=== PATIENT | male | born 1950 | race Hispanic/Latino ===

== ENCOUNTER 2017-06-26 13:13 | Inpatient (IN) | payer MEDICARE, OTHER ==
[~2017-06-26] VITALS: Ht 160 cm; Wt 78.6 kg
[~2017-06-26 13:13] MED LIST: AMARYL2 MG PO; CALCITRIOL0.25 MCG PO; FINASTERIDE5 MG PO; FLOMAX0.4 MG PO; FUROSEMIDE40 MG PO; GABAPENTIN400 MG PO; LANTUS100 UNITS/ SQ; LISINOPRIL10 MG PO; METOPROLOL SUCC25 MG PO; SIMVASTATIN20 MG PO
[2017-06-26] MEDS ORDERED: CLINDAMYCIN PHOS 900MG/ D5W 50 50 ML IV STA (13:50)
[2017-06-26] MEDS ORDERED: SODIUM CHLORIDE 0.9% 1000ML 1,000 ML IV STA (13:50)
[2017-06-26] MEDS ORDERED: HYDROCODONE/APAP 10MG-325MG TAB PO ONE (14:00)
--- NOTE | 2017-06-26 14:59 | Diagnostic Imaging Report ---
PROCEDURE: A single AP view of the chest. COMPARISON: 02/27/16 INDICATIONS: DIABETIC, LEFT 4TH DIGIT ON FOOT BLACK 10 DAYS FINDINGS: Lines/tubes: None. Lungs: Limited by low lung volumes. Central peribronchovascular thickening/cuffing. Pleura: There is no pleural effusion or pneumothorax. Heart and mediastinum: The cardiomediastinal silhouette is enlarged on this AP view. Bones: No acute bony abnormality. IMPRESSION: Limited by low lung volumes. Central peribronchovascular thickening/cuffing. Underlying infiltrate cannot be excluded. Dictated by: Alejandro Hernandez M.D. on 06/26/2017 at 15:07 Electronically approved by: Alejandro Hernandez M.D. on 06/26/2017 at 15:07
--- NOTE | 2017-06-26 15:04 | Diagnostic Imaging Report ---
PROCEDURE:X-RAY LEFT FOOT, COMPLETE COMPARISON:None. INDICATIONS:DIABETIC, 4TH DIGIT ON LEFT TOE BLACK 10 DAYS FINDINGS: There are no fractures or dislocations. Focal area of decreased mineralization in the middle phalanx of the fourth toe, may represent early erosive changes. Vascular calcifications. Mild soft tissue swelling of the midfoot. CONCLUSION: Focal area of decreased mineralization in the middle phalanx of the fourth toe, may represent early erosive changes. Otherwise unremarkable exam. Dictated by: Alejandro Hernandez M.D. on 06/26/2017 at 15:13 Electronically approved by: Alejandro Hernandez M.D. on 06/26/2017 at 15:13
[2017-06-26] MEDS ORDERED: CLINDAMYCIN PHOS 900MG/ D5W 50 50 ML IV ONE (17:58)
[2017-06-26] MEDS ORDERED: SODIUM CHLORIDE 0.9% 1000ML 1,000 ML ONE (17:58)
[2017-06-26 18:00] LABS: BASOPHILS # (AUTO) 0.1 (0.0-0.1); BASOPHILS % 1.2 % (0.0-1.0); BILIRUBIN,URINE NEGATIVE (NEGATIVE); EOSINOPHILS # (AUTO) 0.7 (0.0-0.4); EOSINOPHILS % 9.4 % (0.0-6.0); HEMATOCRIT 34.6 % (38.2-49.6); HEMOGLOBIN 11.5 g/dL (14.0-18.0); KETONES,URINE NEGATIVE (NEGATIVE); LEUKOCYTE ESTERASE ,URINE TRACE (NEGATIVE); LYMPHOCYTES # (AUTO) 1.3 (1.0-3.2); LYMPHOCYTES % 19.1 % (18.0-39.1); MEAN CORPUSCULAR HEMOGLOBIN 30.9 pg (28-32); MEAN CORPUSCULAR HGB CONC 33.2 g/dL (31-35); MONOCYTES # (AUTO) 0.8 (0.2-0.8); MONOCYTES % 10.8 % (4.4-11.3); NEUTROPHILS # (AUTO) 4.1 (2.1-6.9); NEUTROPHILS % 59.2 % (38.7-80.0); NITRITE,URINE NEGATIVE (NEGATIVE); PLATELET COUNT 225 x10e3/uL (140-360); RED BLOOD COUNT 3.72 x10e6/uL (4.3-5.7); RED CELL DISTRIBUTION WIDTH 13.1 % (11.7-14.4); URINE UROBILINOGEN 0.2 mg/dL (0.2 - 1)
[2017-06-26 18:02] LABS: CLARITY,URINE CLEAR (CLEAR); COLOR,URINE YELLOW (YELLOW); PROTEIN,URINE DIPSTICK 1+ (NEGATIVE)
[2017-06-26 18:08] LABS: INR 0.97; PROTHROMBIN TIME 13.4 seconds (11.9-14.5)
[2017-06-26 18:09] LABS: PARTIAL THROMBOPLASTIN TIME 29.7 seconds (23.8-35.5)
[2017-06-26 18:17] LABS: ALBUMIN 4.1 g/dL (3.5-5.0); ALBUMIN/GLOBULIN RATIO 0.9 (0.8-2.0); ANION GAP 12.6 mmol/L (8-16); CALCIUM 9.8 mg/dL (8.4-10.2); CREATININE, SERUM 2.15 mg/dL (0.72-1.25); POTASSIUM 4.6 mmol/L (3.5-5.1)
[2017-06-26 18:19] LABS: BACTERIA,URINE RARE /HPF; MUCUS,URINE FEW (RARE)
[2017-06-26 18:26] LABS: CREATINE KINASE MB 2.5 ng/mL (0.00-5.00); TROPONIN I 0.012 ng/mL (0-0.300)
[2017-06-26] MEDS ORDERED: HYDROMORPHONE 1MG/1ML INJ IV PRN (20:00)
[2017-06-26] MEDS ORDERED: SODIUM CHLORIDE FLUSH 10 ML SYR INJ PRN (20:00)
[2017-06-26] MEDS ORDERED: DEXTROSE 50% SYRINGE 50 ML IV PRN (20:00)
[2017-06-26] MEDS ORDERED: ONDANSETRON HCL INJ 2 MG/ML VIAL IV PRN (20:00)
[2017-06-26] MEDS ORDERED: HYDROMORPHONE 2MG/ML INJ IV PRN (20:15)
[2017-06-26] MEDS ORDERED: CLOPIDOGREL75 MG PO (20:33)
[2017-06-26] MEDS ORDERED: PENTOXIFYLLINE400 MG PO (20:34)
[2017-06-26] MEDS ORDERED: LOSARTAN POTASS25 MG PO (20:34)
[2017-06-26] MEDS ORDERED: CILOSTAZOL100 MG PO (20:35)
[2017-06-26] MEDS ORDERED: FINASTERIDE5 MG PO (20:35)
[2017-06-26] MEDS ORDERED: HYDROCODONE/APAP 10MG-325MG TAB ONE (20:42)
[2017-06-26] MEDS: VANCOMYCIN 1GM/NS 250 ML 250 ML IV SCH (20:49)
[2017-06-26] MEDS: INSULIN REGULAR, HUMAN 100 UNIT/1 ML 3ML VIAL SQ SCH (20:55)
[2017-06-26] MEDS: PIPER-TAZ 3.375 GM 50 ML IV SCH (22:25)
[2017-06-26 22:45] VITALS: BP 189/91
[2017-06-26 23:44] VITALS: BP 189/91
[2017-06-27] MEDS: CLONIDINE HCL 0.1 MG TAB PO PRN (00:36)
[2017-06-27 05:13] VITALS: BP 167/76
[2017-06-27] MEDS ORDERED: SODIUM CHLORIDE 0.9% 250ML 250 ML ONE (05:30)
[2017-06-27] MEDS: PIPER-TAZ 3.375 GM 50 ML IV SCH ×2 (05:42→14:00)
[2017-06-27 06:22] LABS: BASOPHILS # (AUTO) 0.1 (0.0-0.1); BASOPHILS % 1.2 % (0.0-1.0); EOSINOPHILS # (AUTO) 0.5 (0.0-0.4); HEMATOCRIT 28.2 % (38.2-49.6); LYMPHOCYTES # (AUTO) 1.3 (1.0-3.2); LYMPHOCYTES % 26.1 % (18.0-39.1); MEAN CORPUSCULAR HEMOGLOBIN 30.9 pg (28-32); MEAN CORPUSCULAR HGB CONC 32.6 g/dL (31-35); MEAN CORPUSCULAR VOLUME 94.6 fL (81-99); MONOCYTES # (AUTO) 0.7 (0.2-0.8); MONOCYTES % 13.8 % (4.4-11.3); NEUTROPHILS # (AUTO) 2.5 (2.1-6.9); NEUTROPHILS % 48.5 % (38.7-80.0); PLATELET COUNT 179 x10e3/uL (140-360); RED BLOOD COUNT 2.98 x10e6/uL (4.3-5.7)
[2017-06-27 06:39] LABS: HEMOGLOBIN 9.2 g/dL (14.0-18.0)
[2017-06-27 06:45] LABS: ALANINE AMINOTRANSFERASE 13 IU/L (0-55); ALBUMIN 2.9 g/dL (3.5-5.0); ALBUMIN/GLOBULIN RATIO 0.9 (0.8-2.0); ALKALINE PHOSPHATASE 86 IU/L (40-150); ANION GAP 11.3 mmol/L (8-16); BLOOD UREA NITROGEN 25 mg/dL (7-26); BUN/CREATININE RATIO 14 (6-25); CALCIUM 8.4 mg/dL (8.4-10.2); CARBON DIOXIDE 20 mmol/L (22-29); CHLORIDE 113 mmol/L (98-107); CREATININE, SERUM 1.79 mg/dL (0.72-1.25); EST GLOMERULAR FILTRATION RATE 38 ML/MIN (60-); GLUCOSE 87 mg/dL (74-118); POTASSIUM 4.3 mmol/L (3.5-5.1); SODIUM 140 mmol/L (136-145)
--- NOTE | 2017-06-27 07:19 | History and Physical ---
A 67-year-old male comes in with left lower extremity pain and swelling. HISTORY OF PRESENT ILLNESS: Patient was in his usual health until about 10 days prior to admission. Patient started to have some pain in the left foot area, symptomatic. He soaked the area, and did local wound care. Noted that the redness and swelling had gotten worse. Patient also had some drainage in that area, and came into the emergency room. Was found to have cellulitis of the left lower extremity with vascular problems, and admitted for the same. PAST MEDICAL HISTORY: History of hypertension, history of diabetes mellitus, history of long-term use of insulin, history of PAD, history of hyperlipidemia, history of BPH. MEDICATIONS 1. Calcitriol 0.25 mg for nephrolithiasis. 2. Cilostazol for his PAD. 3. for his PAD. 4. Finasteride 5 mg daily. 5. Furosemide 40 mg daily. 6. Gabapentin 400 mg daily for diabetic neuropathy. 7. Glargine insulin 10 units daily. 8. Lisinopril 10 mg daily. 9. Metoprolol 25 mg ER q.24 h. 10. Motexafin 400 mg daily. 11. Simvastatin 20 mg. 12. Tamsulosin 0.4 mg daily. 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 SOCIAL HISTORY: No ETOH. No drug use. Lives at home. Never a smoker. REVIEW OF SYSTEMS: Negative for chest pain or shortness of breath. No nausea, vomiting or diarrhea. No constipation. No rectal bleeding. No hematochezia. No hematemesis. Positive for left lower extremity pain. No diplopia. No blurry vision. Positive for tenderness, and also paresthesia in the left lower extremity. PHYSICAL EXAMINATION GENERAL: Patient is alert and oriented times 3. Very pleasant man. VITALS: Temperature is 9.67, blood pressure 167/76, pulse 61, respiratory rate 18. HEENT: Normocephalic and atraumatic. Pupils reactive to light and accommodation. CV: S1 and S2 normal. Regular rate and rhythm. ABDOMEN: Nontender and nondistended. EXTREMITIES: Right lower extremity BKA, on prosthesis. Left lower extremity left 4th toe a little darkened and discolored. Positive for some serous drainage. Decreased pulses in both tibialis and pedal pulses. Otherwise, no edema. LABORATORY VALUES: Initial white count was 6.95, hemoglobin 11.5 and hematocrit of 34.5. Chemistry: BUN was 27, creatinine 2.15. Coags were normal. Urine also had a trace amount of leukocyte esterase. IMAGING STUDIES: Chest x-ray shows limited lung volumes. Central peribronchovascular thickening. Underlying infiltrate cannot be excluded. Foot x-ray shows focal area of decreased medialization of the middle phalanx of the 4th toe. May represent early osseous changes. Otherwise, unremarkable exam. ASSESSMENT 1. Cellulitis of the lower extremities: Patient has been started on vancomycin and Zosyn. Will go ahead and also do arterial Dopplers. Consult with podiatry will be done, and also a cardiology consult for peripheral arterial disease. Will continue on his home medications, and restart his insulin too. Further recommendations per clinical course. Discussed the case in detail with the patient. The patient is agreeable with the plan. 2. Patient also has acute kidney injury: Will keep an eye on it. Also, wait for cultures to come back. Job#: [id number] YEIMI
[2017-06-27] MEDS: INSULIN REGULAR, HUMAN 100 UNIT/1 ML 3ML VIAL SQ SCH ×4 (07:30→21:32)
[2017-06-27] MEDS: VANCOMYCIN 1GM/NS 250 ML 250 ML IV SCH (08:30)
[2017-06-27] MEDS: METOPROLOL SUCCINATE 25 MG TAB XL PO SCH (09:00)
[2017-06-27] MEDS: CALCITRIOL 0.25 MCG CAP PO SCH (09:00)
[2017-06-27] MEDS: SIMVASTATIN 20 MG TAB PO SCH (09:00)
[2017-06-27] MEDS: FINASTERIDE 5 MG TAB PO SCH (09:00)
[2017-06-27] MEDS: TAMSULOSIN HCL 0.4 MG CAP PO SCH (09:00)
[2017-06-27] MEDS: PENTOXIFYLLINE 400 MG TAB CR PO SCH ×3 (09:00→21:34)
[2017-06-27] MEDS: LOSARTAN POTASSIUM 25 MG TAB PO SCH (09:00)
[2017-06-27] MEDS ORDERED: LISINOPRIL 10 MG TAB PO SCH (09:00)
[2017-06-27] MEDS: GABAPENTIN 400 MG CAP PO SCH (09:00)
[2017-06-27] MEDS ORDERED: FUROSEMIDE 40 MG TAB PO SCH (09:00)
[2017-06-27] MEDS: CLOPIDOGREL BISULFATE 75 MG TAB PO SCH (09:00)
[2017-06-27] MEDS: CILOSTAZOL 100 MG TAB PO SCH ×2 (09:00→16:16)
[2017-06-27 09:10] VITALS: BP 159/79
[2017-06-27 10:25] VITALS: BP 159/79
[2017-06-27 12:18] VITALS: BP 154/80
--- NOTE | 2017-06-27 14:16 | Diagnostic Imaging Report ---
TECHNIQUE: Magnetic resonance imaging of the left foot was performed WITHOUT injected contrast. HISTORY: Foot pain and cellulitis COMPARISON: None available. DISCUSSION: Soft tissue swelling of the forefoot. No discrete ulceration, sinus tract, or abscess. Bone marrow signal is normal. No edema or T1 replacement. Hammertoe deformities. Atrophy of the foot musculature. No intermetatarsal space bursitis or neuroma. IMPRESSION: No osteomyelitis. Forefoot soft tissue edema/cellulitis Signed by: Dr. Tulio Smalls M.D. on 06/27/2017 2:13 PM
--- NOTE | 2017-06-27 18:43 | Consultation ---
DATE OF CONSULTATION: June 27, 2017 REASON FOR CONSULTATION: Cellulitis of left foot. HISTORY OF PRESENT ILLNESS: Mr. Kline is a pleasant 67-year-old male admitted through the ED secondary to progressive foot pain with progressive erythema. He admits that the problem started approximately 10 days ago with a lesion in between the 4th and 3rd digits of the same. Tried doing wound care and failed with increased pain and some drainage also was emitting from the foot. At that point, decided to present to the ED for evaluation and recommendations. PAST MEDICAL HISTORY: Hypertension, diabetes, PAD, hyperlipidemia, BPH. SURGICAL HISTORY: Right below knee amputation. SOCIAL HISTORY: Denies any alcohol, tobacco or illicit abuse. Lives at home. He is independent. ALLERGIES: NO KNOWN DRUG ALLERGIES. MEDICATIONS: Please see MAR for medication list. REVIEW OF SYSTEMS: With the exception of foot pain and hyperesthesia and dysesthesia associated to the left foot, denies any nausea, vomiting, fever, chills, chest pain, hematuria, constipation, diarrhea. PHYSICAL EXAMINATION GENERAL: A and O times 3. NAD. VITALS: 97.9 temperature, pulse 56, respiratory rate 20, blood pressure 154/80. HEENT: Normocephalic and atraumatic. Anicteric. Moist mucosal membranes. NECK: Full range of motion. No JVD. RESPIRATORY: Symmetrical expansion. ABDOMEN: Soft, nontender and nondistended. PSYCHIATRIC: Normal affect. EXTREMITIES: There is a prosthetic to the right lower extremity. Left foot shows significant deformity with significantly tight digits albeit difficult to spread digits with tight interdigital spaces. There is some discoloration associated to the 4th digit with a lesion associated to the medial aspect of the same. Similarly, a lesion associated to the 3rd digit lateral aspect. There is some discoloration associated to the digits as well. Vascularly, his pulses are faint in both dorsalis pedis and tibial arteries of the same foot. No . No soft tissue crepitation is noted. DIAGNOSTIC DATA: Labs: WBC is 5.09, hemoglobin and hematocrit 9.2 and 28.8 respectively, and platelets are 179,000. BUN and creatinine at 25 and 1.79 respectively. X-rays show changes along the 4th digit, left foot. MRI shows no evidence of edema therefore excluding any infectious osseous process. ASSESSMENT 1. Diabetic ulceration, left foot, particularly 3rd and 4th digits. 2. Peripheral arterial disease. 3. Peripheral neuropathy. PLAN: Continue with current workup. Local wound care for now and will consist of petroleum gauze in between affected digits. Pending interventional cardiology evaluation to assess whether the patient is an adequate candidate for angiogram. Also, he is pending noninvasive studies. Thank you, Dr. Sánchez, for allowing me to participate in the care of this very pleasant patient. Job#: [id number] RI
[2017-06-27 20:26] VITALS: BP 92/51
[2017-06-27] MEDS: PIPERACILLIN/TAZO 2.25 GM 50 ML IV SCH (21:34)
[2017-06-28 00:13] VITALS: BP 118/57
[2017-06-28] MEDS: PIPERACILLIN/TAZO 2.25 GM 50 ML IV SCH ×3 (06:16→21:48)
[2017-06-28 06:19] VITALS: BP 123/69
[2017-06-28 06:33] LABS: BASOPHILS # (AUTO) 0.1 (0.0-0.1); BASOPHILS % 1.1 % (0.0-1.0); EOSINOPHILS # (AUTO) 0.5 (0.0-0.4); EOSINOPHILS % 8.3 % (0.0-6.0); HEMATOCRIT 25.4 % (38.2-49.6); HEMOGLOBIN 8.6 g/dL (14.0-18.0); LYMPHOCYTES # (AUTO) 1.4 (1.0-3.2); LYMPHOCYTES % 25.2 % (18.0-39.1); MEAN CORPUSCULAR HEMOGLOBIN 31.5 pg (28-32); MEAN CORPUSCULAR HGB CONC 33.9 g/dL (31-35); MONOCYTES # (AUTO) 0.6 (0.2-0.8); MONOCYTES % 11.3 % (4.4-11.3); NEUTROPHILS # (AUTO) 3.1 (2.1-6.9); NEUTROPHILS % 53.7 % (38.7-80.0); PLATELET COUNT 164 x10e3/uL (140-360); RED BLOOD COUNT 2.73 x10e6/uL (4.3-5.7); RED CELL DISTRIBUTION WIDTH 13.2 % (11.7-14.4)
[2017-06-28 06:56] LABS: ANION GAP 12.1 mmol/L (8-16); CALCIUM 8.5 mg/dL (8.4-10.2); CREATININE, SERUM 2.77 mg/dL (0.72-1.25); POTASSIUM 4.1 mmol/L (3.5-5.1)
[2017-06-28] MEDS: INSULIN REGULAR, HUMAN 100 UNIT/1 ML 3ML VIAL SQ SCH ×4 (07:30→21:48)
[2017-06-28 08:00] VITALS: BP 91/50
[2017-06-28] MEDS ORDERED: VANCOMYCIN 1GM/NS 250 ML 250 ML IV SCH (09:00)
[2017-06-28] MEDS: SIMVASTATIN 20 MG TAB PO SCH (09:03)
[2017-06-28] MEDS: CLOPIDOGREL BISULFATE 75 MG TAB PO SCH (09:03)
[2017-06-28] MEDS: GABAPENTIN 400 MG CAP PO SCH (09:03)
[2017-06-28] MEDS: CALCITRIOL 0.25 MCG CAP PO SCH (09:03)
[2017-06-28] MEDS: TAMSULOSIN HCL 0.4 MG CAP PO SCH (09:03)
[2017-06-28] MEDS: CILOSTAZOL 100 MG TAB PO SCH ×2 (09:03→17:06)
[2017-06-28] MEDS: FINASTERIDE 5 MG TAB PO SCH (09:03)
[2017-06-28] MEDS: PENTOXIFYLLINE 400 MG TAB CR PO SCH ×3 (09:03→21:48)
--- NOTE | 2017-06-28 11:21 | Consultation ---
DATE OF CONSULTATION: June 28, 2017 REASON FOR CONSULTATION: CKD stage 4. HISTORY OF PRESENT ILLNESS: Mr. Grider is a 67-year-old man with diabetes and hypertension, who was seen in our clinic in [place] 2 days ago. On exam, he had a necrotic right second digit and I transferred him to the emergency department for further management from my clinic. He has been admitted for the above to [facility]. He has never had arterial or venous studies performed on the leg. He states that the foot has been progressively getting worsening discoloration over the past few weeks. According to the daughter, he does have occasional pain, although patient denies it. No aggravating or alleviating factors. No associated fevers, chills, or nausea. He has chronic kidney disease stage 4, likely in the setting of diabetic and hypertensive nephrosclerosis. Diabetes and hypertension has been present for over 20 years. It has been complicated by retinopathy and neuropathy. PAST MEDICAL HISTORY 1. Hypertension. 2. Diabetes. 3. Peripheral artery disease. 4. Hyperlipidemia. 5. BPH. Currently, he has a Moss in place. PAST SURGICAL HISTORY: [id number] amputation on the right. SOCIAL HISTORY: No alcohol, tobacco use, or drug use. REVIEW OF SYSTEMS: Denies fevers, chills, nausea, vomiting, diarrhea, chest pain, palpitations, abdominal pain, pain or burning with urination, numbness or tingling in the upper or lower extremities, changes in mentation, changes in appetite, or changes in thirst. A 14-point review of systems is otherwise negative. MEDICATIONS: Reviewed on electronic medical record. PHYSICAL EXAMINATION GENERAL: He is lying comfortably in bed, in no acute distress. VITAL SIGNS: Temperature 97.8, heart rate 65, respiratory rate 18, blood pressure 123/69, and O2 sat is 97% on room air. HEENT: NC, AT, EOMI. NECK: Supple. JVP not appreciated. LUNGS: Clear to auscultation bilaterally. No wheezing or rales. HEART: Regular rate and rhythm, S1 and S2 normal. ABDOMEN: Soft, nontender, and nondistended. EXTREMITIES: No edema in lower extremities. Has a right BKA. NEURO: Cranial nerves II through XII are grossly intact. SKIN: No rashes or lesions. MUSCULOSKELETAL: Right BKA, but otherwise normal inspection. IMAGING: Reviewed on electronic medical record. Foot MRI performed yesterday showed no osteomyelitis, but otherwise showed soft tissue edema and cellulitis. Chest x-ray performed on presentation showed central peribronchovascular cuffing. Foot x-ray showed focal area of decreased mineralization in the middle phalanx of the fourth toe, which may represent early erosive changes. Arterial studies are currently pending. ASSESSMENT AND PLAN 1. A 67-year-old man admitted with foot cellulitis. 2. Chronic kidney disease stage 4. Continue to avoid contrast and NSAIDs. He is on both lisinopril and losartan. We will stop the lisinopril and continue losartan. This may have caused the rise in creatinine. We will also check a urinalysis and a renal ultrasound. Seems dry on exam at this point, so we will hold the Lasix for now as well. 3. Secondary hyperparathyroidism. We will continue the calcitriol. 4. Metabolic acidosis. We will start sodium bicarbonate. 5. Hypertension. Continue metoprolol and losartan. Thank you, Dr. Sánchez, for allowing me to participate in the care of Mr. Grider. I will continue to follow closely. Job#: [id number] CHINMAY
[2017-06-28 12:00] VITALS: BP 179/73
[2017-06-28] MEDS: METOPROLOL SUCCINATE 25 MG TAB XL PO SCH (12:17)
[2017-06-28] MEDS: LOSARTAN POTASSIUM 25 MG TAB PO SCH (12:17)
[2017-06-28 14:09] LABS: BILIRUBIN,URINE NEGATIVE (NEGATIVE); KETONES,URINE NEGATIVE (NEGATIVE); LEUKOCYTE ESTERASE ,URINE TRACE (NEGATIVE); NITRITE,URINE NEGATIVE (NEGATIVE); URINE UROBILINOGEN 0.2 mg/dL (0.2 - 1)
[2017-06-28 14:10] LABS: PROTEIN,URINE DIPSTICK 1+ (NEGATIVE)
[2017-06-28 14:52] LABS: CLARITY,URINE CLEAR (CLEAR); COLOR,URINE YELLOW (YELLOW)
[2017-06-28 14:54] LABS: RBC,URINE 0-5 /HPF (0-5); WBC,URINE (MAN) >50 /HPF (0-5)
[2017-06-28 14:56] LABS: YEAST,URINE MODERATE
--- NOTE | 2017-06-28 15:47 | Consultation ---
DATE OF CONSULTATION: June 28, 2017 REQUESTING PHYSICIAN: Dr. Shun Sánchez REASON FOR CONSULTATION: Peripheral arterial disease. HISTORY OF PRESENT ILLNESS: This is a 67-year-old man with history of hypertension, hyperlipidemia, diabetes mellitus, chronic kidney disease, and peripheral arterial disease status post prior revascularization and right BKA, who presented with gangrene of the left toes. Bilateral lower extremity arterial Doppler was performed, which was suggestive of hemodynamically significant stenosis in the left popliteal artery. Cardiology was consulted for further evaluation. The patient denies any history of heart disease. Denies chest pain, shortness of breath, palpitations, edema, orthopnea, or PND. REVIEW OF SYSTEMS: Negative, except as per HPI. PAST MEDICAL HISTORY 1. Hypertension. 2. Hyperlipidemia. 3. Diabetes mellitus. 4. Chronic kidney disease. 5. Peripheral arterial disease, status post prior revascularization. PAST SURGICAL HISTORY: Right BKA. ALLERGIES: PLEASE SEE EMR. MEDICATIONS: Please see medication list. SOCIAL HISTORY: Denies tobacco, alcohol, or illicit drug use. Reports prior alcohol. FAMILY HISTORY: Noncontributory. PHYSICAL EXAMINATION VITAL SIGNS: Temperature 96.8 degrees, pulse 73, respiratory rate 18, blood pressure 179/73, oxygen saturation 95% on room air. GENERAL: Well-developed, well-nourished man in no acute distress. HEENT: Normocephalic and atraumatic. Pupils are equal. No scleral icterus. NECK: Supple. No thyromegaly or cervical lymphadenopathy. No carotid bruit. LUNGS: Clear to auscultation bilaterally. No wheezes or crackles. CARDIOVASCULAR: Normal rate, regular rhythm. No murmur. Normal S1 and S2. ABDOMEN: Soft. Nontender. EXTREMITIES: No edema. Right BKA. Left foot with dressing. NEURO: Nonfocal exam. SKIN: No rash appreciated. LABS: Sodium 139, potassium 4.1, chloride 102, CO2 19, BUN 39, creatinine 2.77. WBC 5.6, hemoglobin 8.6, hematocrit 25.4, platelets 164. EKG: Normal sinus rhythm, normal ECG. IMPRESSION 1. Left foot cellulitis. 2. Peripheral arterial disease suggested by noninvasive Doppler evaluation. 3. Chronic kidney disease, stage 4. 4. Diabetes mellitus. 5. Hypertension. 6. Hyperlipidemia. RECOMMENDATIONS: Continue current cardiac medications. Antibiotics per primary service. Peripheral angiogram is indicated, given the patient's Doppler findings. However, his renal function will be a limiting factor. We will discuss with nephrology our options and risks of contrast-induced nephropathy. Thank you for this consult. We will continue to follow. Job#: [id number] LILA
[2017-06-28 16:00] VITALS: BP 137/66
[2017-06-28] MEDS: SODIUM BICARBONATE 650 MG TAB PO SCH (17:06)
--- NOTE | 2017-06-28 18:45 | Diagnostic Imaging Report ---
PROCEDURE:US RETROPERITONEAL ( KIDNEY ). COMPARISON:Patients [facility], CT, CT ABDOMEN/PELVIS WO, 02/27/2016, 19:18. INDICATIONS:MORENA ON CKD TECHNIQUE: Damon-scale and color sonographic images of the bilateral kidneys and bladder where obtained in transverse and longitudinal planes. FINDINGS: RIGHT KIDNEY: 10.8 cm, cortex 1.6 cm Cysts: None Solid masses: None Stones: None Hydronephrosis: None Echogenicity: Increased LEFT KIDNEY: 10.9 cm, cortex 1.9 cm Cysts: 1.7 x 1.4 x 1.7 cm hypoechoic, mostly exophytic cystic lesion in the mid lateral aspect (previously measured approximately 1.2 x 1.[address] Solid masses: None Stones: None Hydronephrosis: None Echogenicity: Increased Bladder: Bladder is decompressed, with a Moss catheter in place. Circumferential bladder wall thickening. The Prostate: Not visualized CONCLUSION: 1. Bilateral increased renal cortical echogenicity, consistent with medical renal disease. No hydronephrosis or obstruction. 2. 1.7 cm mostly exophytic cystic lesion in the mid lateral left kidney, which has probably increased in size, although direct comparison is limited given the difference in modalities. This lesion measured simple fluid on prior CT. 3. Circumferential bladder wall thickening, which is greater than expected for decompressed bladder. Correlate for cystitis. Santiago Issa M.D. Dictated by: Santiago Issa M.D. on 06/28/2017 at 18:54 Electronically approved by: Santiago Issa M.D. on 06/28/2017 at 18:54
[2017-06-28 20:00] VITALS: BP 129/61
[2017-06-29] VITALS: BP 122/60
[2017-06-29] MEDS: PIPERACILLIN/TAZO 2.25 GM 50 ML IV SCH ×3 (05:08→21:32)
[2017-06-29 06:39] LABS: ANION GAP 12.5 mmol/L (8-16); CALCIUM 8.4 mg/dL (8.4-10.2); CREATININE, SERUM 2.85 mg/dL (0.72-1.25); PHOSPHORUS 4.4 MG/DL (2.3-4.7); POTASSIUM 4.5 mmol/L (3.5-5.1)
[2017-06-29 08:00] VITALS: BP 180/81
[2017-06-29] MEDS: CILOSTAZOL 100 MG TAB PO SCH ×2 (09:00→16:39)
[2017-06-29] MEDS: LOSARTAN POTASSIUM 25 MG TAB PO SCH (09:00)
[2017-06-29] MEDS: CALCITRIOL 0.25 MCG CAP PO SCH (09:00)
[2017-06-29] MEDS: GABAPENTIN 400 MG CAP PO SCH (09:00)
[2017-06-29] MEDS: CLOPIDOGREL BISULFATE 75 MG TAB PO SCH (09:00)
[2017-06-29] MEDS: TAMSULOSIN HCL 0.4 MG CAP PO SCH (09:00)
[2017-06-29] MEDS: SODIUM BICARBONATE 650 MG TAB PO SCH ×2 (09:00→16:39)
[2017-06-29] MEDS: FINASTERIDE 5 MG TAB PO SCH (09:00)
[2017-06-29] MEDS: SIMVASTATIN 20 MG TAB PO SCH (09:01)
[2017-06-29] MEDS: METOPROLOL SUCCINATE 25 MG TAB XL PO SCH (09:01)
[2017-06-29] MEDS: PENTOXIFYLLINE 400 MG TAB CR PO SCH ×3 (09:01→20:58)
[2017-06-29] MEDS: INSULIN REGULAR, HUMAN 100 UNIT/1 ML 3ML VIAL SQ SCH ×4 (09:05→21:00)
[2017-06-29 09:23] LABS: BASOPHILS # (AUTO) 0.1 (0.0-0.1); BASOPHILS % 0.9 % (0.0-1.0); EOSINOPHILS # (AUTO) 0.4 (0.0-0.4); EOSINOPHILS % 6.7 % (0.0-6.0); HEMATOCRIT 27.4 % (38.2-49.6); HEMOGLOBIN 9.1 g/dL (14.0-18.0); LYMPHOCYTES % 15.6 % (18.0-39.1); MEAN CORPUSCULAR HEMOGLOBIN 31.6 pg (28-32); MEAN CORPUSCULAR HGB CONC 33.2 g/dL (31-35); MEAN CORPUSCULAR VOLUME 95.1 fL (81-99); MONOCYTES # (AUTO) 0.5 (0.2-0.8); MONOCYTES % 8.1 % (4.4-11.3); NEUTROPHILS # (AUTO) 4.4 (2.1-6.9); NEUTROPHILS % 68.4 % (38.7-80.0); PLATELET COUNT 175 x10e3/uL (140-360); RED BLOOD COUNT 2.88 x10e6/uL (4.3-5.7); RED CELL DISTRIBUTION WIDTH 13.2 % (11.7-14.4)
[2017-06-29 10:15] VITALS: BP 180/81
--- NOTE | 2017-06-29 11:03 | Consultation ---
DATE OF CONSULTATION: June 29, 2017 REASON FOR CONSULTATION: Anemia. A 67-year-old gentleman with a past medical history including hypertension, diabetes, peripheral arterial disease, hyperlipidemia, BPH, admitted with left foot pain. He had chronic foot changes following podiatry at the time of admission, which showed foot was dark and discolored, and positive for serous drainage. He was admitted for cellulitis. Patient also had a CBC, which shows normocytic anemia. Patient denies any GI bleed. He had elevated creatinine. No other symptoms noted. PAST MEDICAL HISTORY: Hypertension, diabetes, peripheral arterial disease, status post right below knee amputation, BPH, hyperlipidemia, chronic ulcers. ALLERGIES: REVIEW PER NURSING LIST. MEDICATIONS: Reviewed. SOCIAL HISTORY: Lives with son. No smoking, alcohol or drugs. REVIEW OF SYSTEMS: A 12-point review of systems as per HPI. FAMILY HISTORY: Reviewed and noncontributory. PHYSICAL EXAMINATION GENERAL: Alert, awake and communicative. HEENT: Normocephalic and atraumatic. Sclerae pink. Conjunctivae clear. NECK: Supple. CHEST: Clear to auscultation. CARDIOVASCULAR: Regular rate and rhythm. ABDOMEN: Soft and nontender. EXTREMITIES: Patient has right lower extremity BKA and left lower extremity left 4th toe a little dark and discolored without serous discharge. [employer]: Grossly intact. MUSCULOSKELETAL: Normal to inspection. LABS AND IMAGING: Reviewed. ASSESSMENT: Patient has a history of multiple medical conditions. I am currently following for: 1. Anemia: Patient has normocytic anemia. Possible differential includes anemia of chronic disease. Patient already has elevated kidney function. Recommendation is will start the patient on Epogen treatment. Will assess ferritin and iron level. Further recommendations will be forwarded. Try to avoid frequent blood draws. Will monitor the patient closely. 2. Diabetes: Patient currently on medication. Will monitor blood glucose. 3. Hyperlipidemia: Continue simvastatin. 4. BPH: Patient currently on medication. 5. Cellulitis: Patient currently on Zosyn and vancomycin. Will continue remaining care. Will follow the patient. Job#: [id number] DE
--- NOTE | 2017-06-29 11:54 | Progress Note ---
DATE: REASON FOR CONSULTATION: MORENA on CKD stage 4. SUBJECTIVE: No acute events overnight. PHYSICAL EXAMINATION GENERAL: Lying comfortably in bed on room air. VITAL SIGNS: Temperature 97, heart rate 78, respiratory rate 18, blood pressure 180/81. O2 sat is 96% on room air. HEENT: NCAT, EOMI. NECK: Supple. LUNGS: Clear to auscultation bilaterally. No wheezing or rales. HEART: Regular rate and rhythm. S1, S2 normal. ABDOMEN: Soft, nontender, distended. EXTREMITIES: Right BKA but left, no edema. LABS: Reviewed in electronic medical record. UA significant for 1+ protein and more than 50 WBCs, with negative RBCs. Labs significant for a creatinine of 2.8 and a BUN of 38 and a bicarb of 20. Hemoglobin 9.1. IMAGING: Renal ultrasound shows no hydronephrosis but there is concern for circumferential bladder wall thickening and concerning for cystitis. Along with the fact that his urine has greater than 50 white blood cells and is positive for leukocyte esterase, will treat for urinary tract infection. Patient already remains on Zosyn. Will check urine culture and if negative, will consider acute interstitial nephritis. Current kidney function is not that significantly far from baseline, but at this point, would recommend holding off on contrast until kidney function starts to improve. Based on current glomerular filtration rate and diabetic status, his risk of developing contrast-induced nephropathy is 26% with a 1% risk of requiring dialysis. These odds were explained to the patient and he was willing to pursue contrast if deemed necessary, once kidney function improves. Hypertension. Will hold losartan. Anemia of chronic kidney disease. Appreciate hematology input. On EPO 10,000 units Monday/Monday/Monday. Metabolic acidosis. Continue sodium bicarbonate. Job#: [id number] [place]
[2017-06-29 12:00] VITALS: BP 171/80
[2017-06-29] MEDS: CLONIDINE HCL 0.1 MG TAB PO PRN (12:05)
--- NOTE | 2017-06-29 14:19 | Progress Note ---
DATE: June 29, 2017 CARDIOLOGY PROGRESS NOTE SUBJECTIVE: Patient denies chest pain or shortness of breath. He had discussion with nephrology regarding his risk for contrast and is willing to proceed despite the risk of contrast-induced nephropathy and risk of dialysis. OBJECTIVE VITAL SIGNS: Temperature 97 degrees, pulse 78, respiratory rate 18, blood pressure 171/80. Oxygen saturation 96% on room air. GENERAL: Awake, alert, in no acute distress. LUNGS: Clear to auscultation bilaterally. No wheezes or crackles. CARDIOVASCULAR: Normal rate, regular rhythm. No murmur. Normal S1 and S2. ABDOMEN: Soft. Nontender. EXTREMITIES: Right BKA. Left foot with dressing. No edema. CARDIAC MEDICATIONS 1. Simvastatin 20 mg p.o. daily. 2. Metoprolol succinate 50 mg p.o. daily. 3. Plavix 75 mg p.o. daily. 4. Cilostazol 100 mg p.o. b.i.d. LABS: WBC 6.4, hemoglobin 9.1, hematocrit 27.4, platelets 175. Sodium 140, potassium 4.5, chloride 112, CO2 20, BUN 38, creatinine 2.85. IMPRESSION 1. Left foot cellulitis. 2. Peripheral arterial disease suggested by noninvasive Doppler evaluation. 3. Chronic kidney disease, stage 4. 4. Diabetes mellitus. 5. Hypertension. 6. Hyperlipidemia. RECOMMENDATIONS: Continue current cardiac medications. Antibiotics per primary service. Peripheral angiogram is indicated for further evaluation as his Doppler is suggestive of hemodynamically significant stenosis in the left popliteal artery. This was discussed with nephrology who wished to hold off for a few days to optimize his renal function prior to proceeding. Thank you for this consult. We will continue to follow. Job#: [id number]
[2017-06-29 16:00] VITALS: BP 117/66
[2017-06-29 21:30] VITALS: BP 136/60
[2017-06-30] MEDS: PIPERACILLIN/TAZO 2.25 GM 50 ML IV SCH ×3 (05:16→21:50)
[2017-06-30] MEDS: CLONIDINE HCL 0.1 MG TAB PO PRN (05:18)
[2017-06-30 06:41] LABS: BASOPHILS # (AUTO) 0.1 (0.0-0.1); BASOPHILS % 1.2 % (0.0-1.0); EOSINOPHILS # (AUTO) 0.6 (0.0-0.4); EOSINOPHILS % 9.7 % (0.0-6.0); HEMATOCRIT 27.5 % (38.2-49.6); LYMPHOCYTES # (AUTO) 1.6 (1.0-3.2); MEAN CORPUSCULAR HGB CONC 32.7 g/dL (31-35); MEAN CORPUSCULAR VOLUME 94.8 fL (81-99); MONOCYTES # (AUTO) 0.6 (0.2-0.8); NEUTROPHILS % 51.8 % (38.7-80.0); PLATELET COUNT 173 x10e3/uL (140-360); RED CELL DISTRIBUTION WIDTH 13.2 % (11.7-14.4)
[2017-06-30 07:05] LABS: ANION GAP 11.4 mmol/L (8-16); CALCIUM 8.7 mg/dL (8.4-10.2); CREATININE, SERUM 2.89 mg/dL (0.72-1.25); POTASSIUM 4.4 mmol/L (3.5-5.1)
[2017-06-30] MEDS: INSULIN REGULAR, HUMAN 100 UNIT/1 ML 3ML VIAL SQ SCH ×4 (07:30→21:00)
[2017-06-30 08:24] VITALS: BP 162/89
[2017-06-30] MEDS: SODIUM BICARBONATE 650 MG TAB PO SCH ×2 (08:57→16:29)
[2017-06-30] MEDS: CILOSTAZOL 100 MG TAB PO SCH ×2 (08:57→16:29)
[2017-06-30] MEDS: TAMSULOSIN HCL 0.4 MG CAP PO SCH (08:57)
[2017-06-30] MEDS: CALCITRIOL 0.25 MCG CAP PO SCH (08:57)
[2017-06-30] MEDS: FINASTERIDE 5 MG TAB PO SCH (08:57)
[2017-06-30] MEDS: CLOPIDOGREL BISULFATE 75 MG TAB PO SCH (08:57)
[2017-06-30] MEDS: GABAPENTIN 400 MG CAP PO SCH (08:57)
[2017-06-30] MEDS: PENTOXIFYLLINE 400 MG TAB CR PO SCH ×3 (08:58→21:00)
[2017-06-30] MEDS: METOPROLOL SUCCINATE 25 MG TAB XL PO SCH (08:58)
[2017-06-30] MEDS: EPOETIN ALFA 10000 UNIT/ML VIAL SC SCH (08:58)
[2017-06-30] MEDS: SIMVASTATIN 20 MG TAB PO SCH (08:58)
[2017-06-30 11:01] VITALS: BP 162/89
[2017-06-30 11:22] VITALS: BP 154/81
--- NOTE | 2017-06-30 11:44 | Progress Note ---
DATE: June 30, 2017 Patient seen and examined today. Patient appears comfortable. Clinically doing better. No worsening event noted. PHYSICAL EXAMINATION GENERAL: Alert, awake and communicative. HEENT: Normocephalic and atraumatic. Sclerae are pink. Conjunctivae are clear. NECK: Supple. CHEST: Clear to auscultation. CARDIOVASCULAR: Regular rate and rhythm. EXTREMITIES: No edema. LABS AND IMAGING: Reviewed. ASSESSMENT AND PLAN: Patient has a history of peripheral vascular disease, chronic leg ulcer, renal insufficiency, and anemia. The patient's anemia workup is consistent with anemia of chronic disease and iron deficiency anemia. Current hemoglobin is stable. The patient is currently started on Epogen. Will start the patient on iron sulfate. Will continue remaining care. Will follow the patient closely. Job#: [id number]
[2017-06-30] MEDS: IRON SUCROSE 100 MG in SODIUM CHLORIDE 0.9% 100 ML 100 ML IV SCH (11:53)
[2017-06-30 15:50] VITALS: BP 141/70
--- NOTE | 2017-06-30 18:55 | Progress Note ---
DATE: June 30, 2017 CARDIOLOGY PROGRESS NOTE SUBJECTIVE: The patient reports he had some chest discomfort with inspiration earlier today. The pain was 3 out of 10 in severity. He denied any shortness of breath. OBJECTIVE VITAL SIGNS: Temperature 97.6 degrees, pulse 67, respiratory rate 16, blood pressure 154/81, oxygen saturation 97% on room air. GENERAL: Awake, alert, in no acute distress. LUNGS: Clear to auscultation bilaterally. No wheezes or crackles. CARDIOVASCULAR: Normal rate, regular rhythm. No murmur. Normal S1 and S2. ABDOMEN: Soft, nontender. EXTREMITIES: Right BKA. Left foot with dressing. No edema. CARDIAC MEDICATIONS 1. Cilostazol 100 mg p.o. b.i.d. 2. Metoprolol succinate 50 mg p.o. daily. 3. Plavix 75 mg p.o. daily. 4. Simvastatin 20 mg p.o. nightly. LABS: WBC 5.8, hemoglobin 9, hematocrit 27.5, platelets 173. Sodium 142, potassium 4.4, chloride 114, CO2 21, BUN 37, creatinine 2.89. IMPRESSION 1. Left foot cellulitis. 2. Peripheral arterial disease suggested by noninvasive Doppler evaluation. 3. Chronic kidney disease stage 4. 4. Diabetes mellitus. 5. Hypertension. 6. Hyperlipidemia. RECOMMENDATIONS: Continue the current cardiac medications. Antibiotics per primary service. Peripheral angiogram is indicated for further evaluation as his Doppler is suggestive of hemodynamically significant stenosis in the left popliteal artery. This was discussed with Nephrology, who wish to wait in order to optimize his renal function prior to proceeding. Defer timing to Nephrology. Thank you for this consult. We will continue to follow. Job#: [id number] EV
[2017-06-30 20:00] VITALS: BP_SYST 141; BP_SYST 144; BP_DIAS 70; BP_DIAS 74
[2017-07-01] VITALS (8 sets, daily range): BP systolic 129–200; BP diastolic 75–87
[2017-07-01] MEDS: PIPERACILLIN/TAZO 2.25 GM 50 ML IV SCH ×3 (05:47→22:00)
[2017-07-01 06:45] LABS: BASOPHILS # (AUTO) 0.1 (0.0-0.1); BASOPHILS % 1.3 % (0.0-1.0); EOSINOPHILS # (AUTO) 0.6 (0.0-0.4); EOSINOPHILS % 10.3 % (0.0-6.0); HEMATOCRIT 26.8 % (38.2-49.6); LYMPHOCYTES # (AUTO) 1.6 (1.0-3.2); LYMPHOCYTES % 29.5 % (18.0-39.1); MEAN CORPUSCULAR HEMOGLOBIN 31.1 pg (28-32); MEAN CORPUSCULAR HGB CONC 33.6 g/dL (31-35); MEAN CORPUSCULAR VOLUME 92.7 fL (81-99); MONOCYTES # (AUTO) 0.5 (0.2-0.8); MONOCYTES % 9.9 % (4.4-11.3); NEUTROPHILS # (AUTO) 2.6 (2.1-6.9); NEUTROPHILS % 48.4 % (38.7-80.0); PLATELET COUNT 177 x10e3/uL (140-360); RED BLOOD COUNT 2.89 x10e6/uL (4.3-5.7); RED CELL DISTRIBUTION WIDTH 13.2 % (11.7-14.4)
[2017-07-01 07:19] LABS: CALCIUM 8.5 mg/dL (8.4-10.2); CREATININE, SERUM 2.51 mg/dL (0.72-1.25); MAGNESIUM 1.5 MG/DL (1.3-2.1); PHOSPHORUS 3.7 MG/DL (2.3-4.7); VANCOMYCIN,RANDOM 9.5 ug/mL
[2017-07-01] MEDS: INSULIN REGULAR, HUMAN 100 UNIT/1 ML 3ML VIAL SQ SCH ×4 (07:30→21:00)
--- NOTE | 2017-07-01 08:50 | Progress Note ---
DATE: July 01, 2017 Patient was seen and examined today. Patient appeared comfortable. No worsening events noted. No chest pain. The nurse was present. PHYSICAL EXAMINATION GENERAL: Alert, awake and communicative. HEENT: Normocephalic and atraumatic. Sclerae pale. Conjunctivae clear. NECK: Supple. CHEST: Clear to auscultation. CARDIOVASCULAR: Regular rate and rhythm. EXTREMITIES: Chronic skin changes with left foot ulcer. LABS AND IMAGING: Reviewed. ASSESSMENT AND PLAN: Patient with a history of multiple medical conditions. I am currently following for anemia. Patient was started on iron and Epogen. Current hemoglobin is 9, and not worsening. Clinical condition is stable. Patient is scheduled for angiogram and vascular procedure likely on Monday. Patient also has worsening kidney function with creatinine running between 2 and 3. Baseline renal function. At this point, do not recommend any further hematological intervention. Hematologically, within optimal condition for procedure. Will continue remaining care. Will follow the patient. Hyperlipidemia. Continue simvastatin. BPH. On medication. Cellulitis. On antibiotics. Job#: [id number] CT
[2017-07-01] MEDS: CARVEDILOL 12.5 MG TAB PO SCH ×2 (10:01→17:04)
[2017-07-01] MEDS: CILOSTAZOL 100 MG TAB PO SCH ×2 (10:01→17:04)
[2017-07-01] MEDS: GABAPENTIN 400 MG CAP PO SCH (10:01)
[2017-07-01] MEDS: FINASTERIDE 5 MG TAB PO SCH (10:01)
[2017-07-01] MEDS: IRON SUCROSE 100 MG in SODIUM CHLORIDE 0.9% 100 ML 100 ML IV SCH (10:01)
[2017-07-01] MEDS: CALCITRIOL 0.25 MCG CAP PO SCH (10:01)
[2017-07-01] MEDS: CLOPIDOGREL BISULFATE 75 MG TAB PO SCH (10:01)
[2017-07-01] MEDS: SODIUM BICARBONATE 650 MG TAB PO SCH ×2 (10:01→17:04)
[2017-07-01] MEDS: TAMSULOSIN HCL 0.4 MG CAP PO SCH (10:01)
[2017-07-01] MEDS: PENTOXIFYLLINE 400 MG TAB CR PO SCH ×2 (10:01→14:38)
[2017-07-01] MEDS: VANCOMYCIN 1GM/NS 250 ML 250 ML IV SCH (11:36)
[2017-07-01] MEDS: CLONIDINE HCL 0.1 MG TAB PO PRN (11:37)
--- NOTE | 2017-07-01 14:32 | Progress Note ---
DATE: June 30, 2017 RENAL PROGRESS NOTE The patient is followed for chronic kidney disease, stage 4. Creatinine continues to be stable at about 2.8 mg/dL. No nausea. No vomiting. No shortness of breath. OBJECTIVE VITAL SIGNS: Have been noted and is stable. LUNGS: Clear to auscultation bilaterally. CARDIOVASCULAR: S1 and S2. No rubs, gallops or murmurs. ABDOMEN: Soft. Positive bowel sounds. Nontender. No organomegaly. EXTREMITIES: No edema. LABS: Reviewed. Creatinine is 2.89, potassium 4.4. IMPRESSION AND PLAN 1. Chronic kidney disease, stage 4: More or less stable. Continue to monitor closely. 2. Hypertension, stable. 3. Proteinuria: Outpatient followup. Job#: [id number] YEIMI
--- NOTE | 2017-07-01 14:36 | Progress Note ---
DATE: July 01, 2017 RENAL PROGRESS NOTE SUBJECTIVE: Patient is followed for chronic kidney disease, stage 4. Patient's kidney function is slightly better today. Creatinine is down to 2.5. He is still at a CKD, stage 4 baseline. No nausea. No vomiting. No shortness of breath. He is not on any IV fluids. OBJECTIVE VITAL SIGNS: Noted. Blood pressure is elevated at 180/80, 95% O2 sats on room air, pulse 71, and afebrile. LUNGS: Clear to auscultation bilaterally. CARDIOVASCULAR: S1 and S2. No rubs. ABDOMEN: Soft and nontender. EXTREMITIES: No edema. LABS: Have been reviewed and outlined above. Creatinine is down to 2.5. IMPRESSION AND PLAN 1. Chronic kidney disease, stage 4: Stable kidney function. Will continue to monitor closely. Further recommendations. 2. Hypertension, elevated: Carvedilol dose has been increased to 12.5 mg p.o. b.i.d. from today. Will continue to monitor. Continue to monitor blood pressure closely. Further recommendations. 3. Anemia of chronic disease, stable. 4. Proteinuria: Outpatient followup. Job#: [id number] YEIMI
[2017-07-01] MEDS: HYDRALAZINE HCL 25 MG TAB PO SCH ×2 (15:45→17:04)
[2017-07-01] MEDS: ASPIRIN 81 MG CHEW TAB PO SCH (17:03)
[2017-07-01] MEDS: SIMVASTATIN 20 MG TAB PO SCH (19:57)
--- NOTE | 2017-07-01 21:26 | Diagnostic Imaging Report ---
CHEST 2 VIEWS, Technique: CHEST 2 VIEWS Comparison: None Clinical history: Abnormal lung exam, shortness of breath DISCUSSION: Heart/mediastinum: Stable mildly enlarged. Lungs/pleural spaces: Low lung volumes result in bibasilar vascular crowding/atelectasis. No effusion or pneumothorax. IMPRESSION: Low lung volumes. Signed by: Dr Dana Smart MD on 07/01/2017 9:22 PM
[2017-07-02] VITALS (8 sets, daily range): BP systolic 138–197; BP diastolic 71–92
--- NOTE | 2017-07-02 01:42 | Progress Note ---
DATE: July 01, 2017 CARDIOLOGY PROGRESS NOTE SUBJECTIVE: Denies chest pain or shortness of breath today. OBJECTIVE VITALS: Temperature is 97.4, heart rate 74, respiratory rate 19, blood pressure 200/80, O2 sat 96% on room air. GENERAL: In no acute distress. NECK: No JVD. CHEST: With left basilar rales. CARDIOVASCULAR: Regular rate and rhythm. Normal S1 and S2. No S3 or S4. No murmurs or rubs. ABDOMEN: Soft. EXTREMITIES: Right BKA. Left foot with improved erythema seen. Blackish discoloration of the 4th toe. Per the patient, somewhat improved compared to when he came in. No ulcerations or ivelisse gangrenous changes. CARDIOVASCULAR MEDICATIONS: Reviewed. 1. Pentoxifylline 400 mg t.i.d. 2. Clonidine 0.1 mg q.6 h. p.r.n. 3. Carvedilol 12.5 mg b.i.d. recently up-titrated. 4. Clopidogrel 75 mg daily. 5. Cilostazol 100 mg b.i.d. 6. Simvastatin 10 mg at bedtime. STUDIES: White blood cells 5.3, hemoglobin 9, and platelets 177,000. INR 0.9. Creatinine is 2.5 down from 2.89, which was a peak yesterday. Bicarbonate 20, glucose 214, magnesium 1.5, calcium 8.5, phosphorus 3.7. ASSESSMENT 1. Mild rales on exam. 2. Uncontrolled hypertension. 3. Left foot cellulitis, improving. 4. Peripheral arterial disease suggested by noninvasive Doppler. 5. Acute kidney injury on chronic kidney disease. 6. Diabetes mellitus. 7. Hypertension. 8. Dyslipidemia. RECOMMENDATIONS 1. Obtain echocardiogram. 2. Repeat chest x-ray given rales heard on exam today. Patient denies any shortness of breath. 3. Up titrate antihypertensives. 4. Add aspirin. Discontinue Pletal. 5. If LV systolic function decreased, will discontinue cilostazol. Job#: [id number] IN
[2017-07-02] MEDS: HYDRALAZINE HCL 25 MG TAB PO SCH ×4 (06:36→16:58)
[2017-07-02] MEDS: PIPERACILLIN/TAZO 2.25 GM 50 ML IV SCH ×3 (06:36→21:52)
[2017-07-02] MEDS: INSULIN REGULAR, HUMAN 100 UNIT/1 ML 3ML VIAL SQ SCH ×4 (07:30→21:00)
[2017-07-02] MEDS: ASPIRIN 81 MG CHEW TAB PO SCH (09:09)
[2017-07-02] MEDS: CLONIDINE HCL 0.1 MG TAB PO PRN ×2 (09:09→16:59)
[2017-07-02] MEDS: FINASTERIDE 5 MG TAB PO SCH (09:10)
[2017-07-02] MEDS: GABAPENTIN 400 MG CAP PO SCH (09:10)
[2017-07-02] MEDS: SODIUM BICARBONATE 650 MG TAB PO SCH ×2 (09:10→16:58)
[2017-07-02] MEDS: CALCITRIOL 0.25 MCG CAP PO SCH (09:10)
[2017-07-02] MEDS: CLOPIDOGREL BISULFATE 75 MG TAB PO SCH (09:10)
[2017-07-02] MEDS: TAMSULOSIN HCL 0.4 MG CAP PO SCH (09:10)
[2017-07-02] MEDS: IRON SUCROSE 100 MG in SODIUM CHLORIDE 0.9% 100 ML 100 ML IV SCH (09:10)
[2017-07-02] MEDS: CILOSTAZOL 100 MG TAB PO SCH ×2 (09:10→16:58)
[2017-07-02] MEDS: CARVEDILOL 12.5 MG TAB PO SCH ×2 (09:10→16:58)
--- NOTE | 2017-07-02 10:27 | Progress Note ---
DATE: July 02, 2017 CARDIOLOGY PROGRESS NOTE SUBJECTIVE: No chest pain or shortness of breath. OBJECTIVE VITALS: Temperature 97.9, heart rate 73, respiratory rate 19, blood pressure 183/89, O2 sat 96% on room air. GENERAL: No acute distress. Alert. NECK: No JVD. CHEST: Clear to auscultation. CARDIOVASCULAR: Regular rate and rhythm. Normal S1 and S2. ABDOMEN: Soft. EXTREMITIES: No edema. Abnormal pulses. Good capillary refill stable. Darkening of 4th left toe. Callous formation in the medial aspect of this toe. CARDIOVASCULAR MEDICATIONS 1. Carvedilol 12.5 mg b.i.d. 2. Clopidogrel 75 mg daily. 3. Cilostazol 100 mg b.i.d. 4. Aspirin 81 mg daily. 5. Simvastatin 20 mg at bedtime. STUDIES: For today, none available. ASSESSMENT 1. Uncontrolled hypertension. 2. Left foot cellulitis, improving. 3. Peripheral arterial disease suggested by Doppler. 4. Acute kidney injury on chronic kidney disease. 5. Diabetes mellitus. 6. Hypertension. 7. Dyslipidemia. RECOMMENDATIONS 1. Echo pending. Chest x-ray with low lung volumes with atelectasis. Advised on incentive spirometry. 2. Blood pressure remains uncontrolled. Continue to up-titrate antihypertensives. 3. Monitor renal function. 4. Continue aspirin. 5. If LV systolic function decreases on echo, discontinue cilostazol. 6. Regarding peripheral angiogram and possible intervention, continue to monitor clinical response of lower extremity to current noninvasive management. If no wounds evolve and renal function remains an issue, consider holding off on heparin for peripheral angiogram given elevated risk for contrast-induced nephropathy. However, if renal function allows particularly if foot exam continues to worsen, understanding elevated risk for contrast-induced nephropathy, will discuss with the patient preceding. Trend renal function throughout this week. Job#: [id number] YEIMI
[2017-07-02] MEDS: VANCOMYCIN 1GM/NS 250 ML 250 ML IV SCH (13:36)
[2017-07-02] MEDS ORDERED: LABETALOL HCL IV 5 MG/ML 20ML MDV IV PRN (17:45)
[2017-07-02] MEDS: SIMVASTATIN 20 MG TAB PO SCH (20:31)
[2017-07-03] VITALS (7 sets, daily range): BP systolic 139–198; BP diastolic 66–90
[2017-07-03] MEDS: PIPERACILLIN/TAZO 2.25 GM 50 ML IV SCH ×3 (06:18→20:26)
[2017-07-03] MEDS: HYDRALAZINE HCL 25 MG TAB PO SCH ×4 (06:18→18:33)
[2017-07-03 07:07] LABS: ANION GAP 13.3 mmol/L (8-16); CALCIUM 8.9 mg/dL (8.4-10.2); CREATININE, SERUM 2.15 mg/dL (0.72-1.25); POTASSIUM 4.3 mmol/L (3.5-5.1)
[2017-07-03] MEDS: INSULIN REGULAR, HUMAN 100 UNIT/1 ML 3ML VIAL SQ SCH ×4 (08:00→20:22)
[2017-07-03 09:17] LABS: BASOPHILS # (AUTO) 0.1 (0.0-0.1); BASOPHILS % 1.3 % (0.0-1.0); EOSINOPHILS # (AUTO) 0.6 (0.0-0.4); EOSINOPHILS % 8.5 % (0.0-6.0); HEMATOCRIT 27.9 % (38.2-49.6); HEMOGLOBIN 9.3 g/dL (14.0-18.0); LYMPHOCYTES # (AUTO) 1.3 (1.0-3.2); LYMPHOCYTES % 18.9 % (18.0-39.1); MEAN CORPUSCULAR HEMOGLOBIN 31.3 pg (28-32); MEAN CORPUSCULAR HGB CONC 33.3 g/dL (31-35); MEAN CORPUSCULAR VOLUME 93.9 fL (81-99); MONOCYTES # (AUTO) 0.7 (0.2-0.8); MONOCYTES % 10.7 % (4.4-11.3); NEUTROPHILS % 59.6 % (38.7-80.0); PLATELET COUNT 184 x10e3/uL (140-360); RED BLOOD COUNT 2.97 x10e6/uL (4.3-5.7); RED CELL DISTRIBUTION WIDTH 13.1 % (11.7-14.4)
[2017-07-03] MEDS: ASPIRIN 81 MG CHEW TAB PO SCH (09:43)
[2017-07-03] MEDS: CILOSTAZOL 100 MG TAB PO SCH ×2 (09:44→18:33)
[2017-07-03] MEDS: TAMSULOSIN HCL 0.4 MG CAP PO SCH (09:44)
[2017-07-03] MEDS: SODIUM BICARBONATE 650 MG TAB PO SCH ×2 (09:44→18:33)
[2017-07-03] MEDS: CLOPIDOGREL BISULFATE 75 MG TAB PO SCH (09:44)
[2017-07-03] MEDS: CALCITRIOL 0.25 MCG CAP PO SCH (09:44)
[2017-07-03] MEDS: EPOETIN ALFA 10000 UNIT/ML VIAL SC SCH (09:44)
[2017-07-03] MEDS: FINASTERIDE 5 MG TAB PO SCH (09:44)
[2017-07-03] MEDS: CARVEDILOL 12.5 MG TAB PO SCH ×2 (09:44→18:33)
[2017-07-03] MEDS: GABAPENTIN 400 MG CAP PO SCH (09:44)
--- NOTE | 2017-07-03 09:46 | Progress Note ---
DATE: July 03, 2017 Patient was seen and examined today. Patient appeared comfortable. No events noted. Clinical condition is stable. PHYSICAL EXAMINATION GENERAL: Alert, awake and communicative. HEENT: Normocephalic and atraumatic. Sclerae pink. Conjunctivae clear. NECK: Supple. CHEST: Clear to auscultation. ABDOMEN: Soft and nontender. EXTREMITIES: No clubbing or cyanosis. Wound covered with clean dressing. LABS AND IMAGING: Reviewed. ASSESSMENT AND PLAN: Patient with a history of left leg cellulitis, hypertension, peripheral arterial disease, acute kidney injury, diabetes, hypertension, dyslipidemia. I am currently involved for symptomatic anemia. Patient's workup showed iron deficiency anemia of chronic disease. Patient currently on Procrit and iron treatment. Current CBC not available. Clinical condition is stable. At this point, will continue current care. Will monitor the patient closely. The patient might require procedure. Will continue remaining care. Will follow. Job#: [id number] YEIMI
[2017-07-03] MEDS: IRON SUCROSE 100 MG in SODIUM CHLORIDE 0.9% 100 ML 100 ML IV SCH (11:35)
--- NOTE | 2017-07-03 12:49 | Progress Note ---
DATE: July 03, 2017 REASON FOR CONSULTATION: MORENA on CKD, stage 4. SUBJECTIVE: No acute events overnight. Eager to discuss whether or not the contrast study will be performed. OBJECTIVE GENERAL: Lying comfortably in bed in no acute distress. VITAL SIGNS: Temperature 98.1, heart rate 96, respiratory rate 19, blood pressure 192/82. O2 sat is 95% on room air. HEENT: NC, AT, EOMI. LUNGS: Clear to auscultation bilaterally. No wheezing or rales. HEART: Regular rate and rhythm. ABDOMEN: Soft, nontender. EXTREMITIES: Right BKA. Left with no edema. LABS: Reviewed on electronic medical record. Creatinine is now down to 2.1, which is close to baseline. Bicarb 21. BUN 27. IMAGING: Reviewed on electronic medical record. Chest x-ray showed low lung volumes. ASSESSMENT AND PLAN: A 67-year-old man with chronic kidney disease, stage 4, and evidence of necrotic toe. 1. Chronic kidney disease, stage 4, and acute kidney injury, improved. Now closer to baseline renal function. At this point, based on current kidney function, diabetic status, and receiving 100 mL of contrast, he has a 14% risk of developing contrast-induced nephropathy and 0.12% of requiring dialysis. It was explained to the patient. From the patient's standpoint, he would like to proceed with obtaining this study. Will hydrate with normal saline before and after the contrast study with normal saline at 75 mL per hour for a liter before and for a liter after. 2. Hypertension. I appreciate cardiology input as well. On Coreg 12.5 mg b.i.d. and labetalol p.r.n. 3. Metabolic acidosis. Continue sodium bicarbonate. 4. Anemia of chronic kidney disease on IV iron and Epogen. Job#: [id number]
[2017-07-03] MEDS: VANCOMYCIN 1GM/NS 250 ML 250 ML IV SCH (13:26)
--- NOTE | 2017-07-03 20:22 | Progress Note ---
DATE: July 03, 2017 CARDIOLOGY PROGRESS NOTE SUBJECTIVE: The patient denies chest pain or shortness of breath. OBJECTIVE VITAL SIGNS: Temperature 96.8 degrees, pulse 72, respiratory rate 18, blood pressure 195/89, oxygen saturation 96% on room air. GENERAL: Awake, alert, in no acute distress. LUNGS: Clear to auscultation bilaterally. No wheezes or crackles. CARDIOVASCULAR: Normal rate, regular rhythm. No murmur. Normal S1 and S2. ABDOMEN: Soft, nontender. EXTREMITIES: Right BKA. Left foot with dressing. No edema. CARDIAC MEDICATIONS 1. Hydralazine 25 mg p.o. q.6 h. 2. Carvedilol 12.5 mg p.o. b.i.d. 3. Plavix 75 mg p.o. daily. 4. Cilostazol 100 mg p.o. b.i.d. 5. Aspirin 81 mg p.o. daily. 6. Simvastatin 20 mg p.o. nightly. LABS: WBC 6.72, hemoglobin 9.3, hematocrit 27.9, platelets 184,000. Sodium 140, potassium 4.3, chloride 110, CO2 21, BUN 27, creatinine 2.15. IMPRESSIONS 1. Left foot cellulitis, improving. 2. Hypertension, uncontrolled. 3. Peripheral arterial disease by noninvasive Doppler evaluation. 4. Gmmop-pz-qauwhxf kidney disease, improving. 5. Diabetes mellitus. 6. Dyslipidemia. RECOMMENDATIONS: Increase carvedilol given uncontrolled blood pressure. Renal function is improved. Will discuss with podiatry regarding the status patient's wound. If wound is worsening, we will need to proceed with peripheral angiogram despite risk of contrast nephropathy. Evaluate schedule for possible peripheral angiogram. Continue current cardiac medications, otherwise. Thank you for this consult. We will continue to follow. Job#: [id number] CQ JOANIE
[2017-07-03] MEDS: SIMVASTATIN 20 MG TAB PO SCH (20:26)
[2017-07-04] MEDS: HYDRALAZINE HCL 25 MG TAB PO SCH ×3 (00:45→12:00)
[2017-07-04] MEDS: PIPERACILLIN/TAZO 2.25 GM 50 ML IV SCH ×2 (05:36→14:00)
[2017-07-04 06:26] LABS: ANION GAP 11.8 mmol/L (8-16); CALCIUM 8.5 mg/dL (8.4-10.2); CREATININE, SERUM 2.25 mg/dL (0.72-1.25); PHOSPHORUS 3.5 MG/DL (2.3-4.7); POTASSIUM 3.8 mmol/L (3.5-5.1)
[2017-07-04] MEDS: INSULIN REGULAR, HUMAN 100 UNIT/1 ML 3ML VIAL SQ SCH ×2 (07:30→12:09)
[2017-07-04 08:00] VITALS: BP 186/87
[2017-07-04 09:04] LABS: BASOPHILS # (AUTO) 0.1 (0.0-0.1); BASOPHILS % 1.1 % (0.0-1.0); EOSINOPHILS # (AUTO) 0.7 (0.0-0.4); EOSINOPHILS % 9.8 % (0.0-6.0); HEMATOCRIT 27.5 % (38.2-49.6); HEMOGLOBIN 9.2 g/dL (14.0-18.0); LYMPHOCYTES # (AUTO) 1.4 (1.0-3.2); LYMPHOCYTES % 20.6 % (18.0-39.1); MEAN CORPUSCULAR HEMOGLOBIN 31.7 pg (28-32); MEAN CORPUSCULAR HGB CONC 33.5 g/dL (31-35); MEAN CORPUSCULAR VOLUME 94.8 fL (81-99); MONOCYTES # (AUTO) 0.7 (0.2-0.8); MONOCYTES % 10.7 % (4.4-11.3); NEUTROPHILS # (AUTO) 3.8 (2.1-6.9); NEUTROPHILS % 56.9 % (38.7-80.0); PLATELET COUNT 178 x10e3/uL (140-360); RED CELL DISTRIBUTION WIDTH 13.4 % (11.7-14.4)
[2017-07-04] MEDS: IRON SUCROSE 100 MG in SODIUM CHLORIDE 0.9% 100 ML 100 ML IV SCH (09:15)
--- NOTE | 2017-07-04 09:33 | Progress Note ---
DATE: July 04, 2017 SUBJECTIVE: Patient is seen and examined today. Patient appears comfortable. No worsening event noted. PHYSICAL EXAMINATION: GENERAL: Alert, awake, communicative. HEENT: Normocephalic, atraumatic. Sclerae pink. Conjunctivae clear. NECK: Supple. CHEST: Decreased breath sounds at the bases. CARDIOVASCULAR: Regular rate and rhythm. ABDOMEN: Soft. EXTREMITIES: No edema. LABS AND IMAGING: Reviewed. ASSESSMENT AND PLAN: Patient with history of left foot cellulitis, hypertension, peripheral arterial disease, uqwfi-oq-uoohwez kidney disease, diabetes, and dyslipidemia. Patient also had anemia, workup showed anemia of chronic disease and iron deficiency. Current hemoglobin pending, yesterday hemoglobin improving. Clinical condition is stable. Patient is supposed to get angiogram based on the kidney functions. At current, do not recommend any further hematological intervention, try to avoid frequent blood drawn. Continue current care. Will monitor patient closely. Job#: [id number]
[2017-07-04] MEDS: GABAPENTIN 400 MG CAP PO SCH (09:45)
[2017-07-04] MEDS: TAMSULOSIN HCL 0.4 MG CAP PO SCH (09:45)
[2017-07-04] MEDS: ASPIRIN 81 MG CHEW TAB PO SCH (09:45)
[2017-07-04] MEDS: FINASTERIDE 5 MG TAB PO SCH (09:45)
[2017-07-04] MEDS: CLOPIDOGREL BISULFATE 75 MG TAB PO SCH (09:45)
[2017-07-04] MEDS: CALCITRIOL 0.25 MCG CAP PO SCH (09:45)
[2017-07-04] MEDS: CILOSTAZOL 100 MG TAB PO SCH (09:45)
[2017-07-04] MEDS: SODIUM BICARBONATE 650 MG TAB PO SCH (09:45)
[2017-07-04] MEDS ORDERED: SODIUM CHLORIDE 0.9% 1000ML 1,000 ML IV SCH (10:30)
--- NOTE | 2017-07-04 11:11 | Progress Note ---
DATE: July 04, 2017 REASON FOR CONSULTATION: CKD, stage 4. SUBJECTIVE: No acute events overnight. Is n.p.o. and is currently complaining of feeling hungry. OBJECTIVE GENERAL: Lying comfortably in bed in no acute distress. VITAL SIGNS: Temperature 97, heart rate 76, respiratory rate 19, blood pressure 186/87, and O2 sat is 95% on room air. HEENT: NCAT. EOMI. LUNGS: Clear to auscultation bilaterally. No wheezing or rales. HEART: Regular rate and rhythm. S1 and S2 normal. ABDOMEN: Soft, nontender and nondistended. EXTREMITIES: No edema. LABS: Reviewed in electronic medical record. Significant for a BUN of 32, creatinine of 2.2, carbon dioxide of 22. IMAGING: Was reviewed in the electronic medical record. ASSESSMENT AND PLAN: A 67-year-old man with chronic kidney disease, stage 4, presents with necrotic toe ulceration. 1. Chronic kidney disease, stage 4: Kidney function closer to baseline at this point. Plan for angiogram as per cardiology. Start the patient on normal saline at 100 per hour. If the plan is to go early this morning, can go ahead and give the bolus of 1 L over an hour. If not, then will continue normal saline at 100 per hour until the angiogram if it is planned for later today. 2. Hypertension, accelerated: Blood pressures will continue to increase on normal saline at each liter of normal saline will provide 9 g of sodium. We have increased the Coreg to 25 mg b.i.d. 3. Anemia of chronic kidney disease and iron deficiency anemia: Getting iron and Epogen as per hematology. Job#: [id number] YEIMI
[2017-07-04 12:00] VITALS: BP 127/60
[2017-07-04] MEDS: VANCOMYCIN 1GM/NS 250 ML 250 ML IV SCH (13:00)
[2017-07-04 14:34] VITALS: BP 186/87
[2017-07-04] MEDS ORDERED: CLINDAMYCIN HC150 MG ×2 (15:55→15:57)
[2017-07-04 16:00] VITALS: BP 176/79
[2017-07-04] MEDS ORDERED: CLINDAMYCIN HC150 MG PO (16:01)
[2017-07-04] MEDS ORDERED: CARVEDILOL 12.5 MG TAB PO SCH (17:00)
--- NOTE | 2017-07-04 17:13 | Progress Note ---
DATE: July 04, 2017 CARDIOLOGY PROGRESS NOTE SUBJECTIVE: The patient denies chest pain or shortness of breath. Extensive discussion was held with the patient and family members in the room regarding plan of care. OBJECTIVE VITAL SIGNS: Temperature 97.3 degrees, pulse 63, respiratory rate 19, blood pressure 127/60, oxygen saturation 100% on room air. GENERAL: Awake, alert, in no acute distress. LUNGS: Clear to auscultation bilaterally. No wheezes or crackles. CARDIOVASCULAR: Normal rate, regular rhythm. No murmur. Normal S1 and S2. ABDOMEN: Soft, nontender. EXTREMITIES: Right BKA. Left foot with dressing. No edema. CARDIAC MEDICATIONS 1. Hydralazine 25 mg p.o. q.6 h. 2. Plavix 75 mg p.o. daily. 3. Cilostazol 100 mg p.o. b.i.d. 4. Aspirin 81 mg p.o. daily. 5. Simvastatin 20 mg p.o. nightly. LABS: WBC 6.64, hemoglobin 9.2, hematocrit 27.5, platelets 178,000, sodium 141, potassium 3.8, chloride 111, CO2 of 22, BUN 32, creatinine 2.25. IMPRESSION 1. Left foot cellulitis, improving. 2. Hypertension, uncontrolled. 3. Peripheral arterial disease by noninvasive Doppler evaluation. 4. Bicoj-mu-ptfieff kidney disease, improving. 5. Diabetes mellitus. 6. Dyslipidemia. RECOMMENDATIONS: Per discussion with podiatry, the patient's wound has improved and is healing well. We, therefore, had extensive discussion with the patient and his family regarding the risks and benefits of peripheral angiogram, specifically proceeding with peripheral angiogram may not prevent him from tissue loss and does put him at the risk of contrast disease nephropathy as well as hemodialysis. Given wound is improving, recommendation is for close monitoring and deferring angiogram at this time to preserve his renal function. The patient and family are agreeable with this plan of care. They do understand that he is at risk for tissue or limb loss without proceeding with peripheral angiogram, but also understand that peripheral angiogram may not prevent amputation or limb loss as well. Please have the patient follow up closely with us in the office. Thank you for this consult. We will continue to follow. Job#: [id number]
== END 2017-07-04 16:45 | disposition home or self-care (01) | DRG 300 ==
LOC: ER 13:13 → ERHOLD 20:10 → EDBEDREQ 20:29 → MED/SURG2 22:10
PROVIDERS: ADMIT Family Medicine; ATTEND Family Medicine
DX: E11.51 Type 2 diabetes mellitus with diabetic peripheral angiopathy without gangrene (principal); L03.116 Cellulitis of left lower limb; N17.9 Acute kidney failure, unspecified; E87.2 Acidosis; E87.4 Mixed disorder of acid-base balance; N18.4 Chronic kidney disease, stage 4 (severe); E11.42 Type 2 diabetes mellitus with diabetic polyneuropathy; N25.81 Secondary hyperparathyroidism of renal origin; N39.0 Urinary tract infection, site not specified; L97.529 Non-pressure chronic ulcer of other part of left foot with unspecified severity; I12.9 Hypertensive chronic kidney disease with stage 1 through stage 4 chronic kidney disease, or unspecified chronic kidney disease; E86.0 Dehydration; Z89.511 Acquired absence of right leg below knee; E11.621 Type 2 diabetes mellitus with foot ulcer; E11.319 Type 2 diabetes mellitus with unspecified diabetic retinopathy without macular edema; E78.5 Hyperlipidemia, unspecified; N40.0 Benign prostatic hyperplasia without lower urinary tract symptoms; D63.1 Anemia in chronic kidney disease; D50.9 Iron deficiency anemia, unspecified; R80.9 Proteinuria, unspecified
CPT/HCPCS: 36415; 71045; 71046; 76770; 80048; 80053; 80202; 81001; 82550; 82553; 82728; 82948; 83605; 83735; 84100; 84484; 85025; 85610; 85730; 87040; 87071; 87086; 87205; 93005; 93306; 93925; 96360; 96365; 99284; J1756; J2543; J3370; J7030; J7050; Q4081

== ENCOUNTER → 2018-09-04 | Outpatient (CLI) | payer MEDICARE, OTHER ==
[~2018-09-04] MED LIST changes: +CILOSTAZOL100 MG PO; +CLINDAMYCIN HC150 MG; +CLINDAMYCIN HC150 MG PO; +CLOPIDOGREL75 MG PO; +LOSARTAN POTASS25 MG PO; +PENTOXIFYLLINE400 MG PO
--- NOTE | 2018-09-04 15:49 | Diagnostic Imaging Report ---
EXAMINATION: Renal ultrasound. CLINICAL HISTORY :Cystic kidney disease COMPARISON: 06/28/2017 TECHNIQUE: Grayscale and color Doppler evaluation of the kidneys and bladder was performed in transverse and longitudinal planes. DISCUSSION: RIGHT KIDNEY: The right kidney measures 10.3 cm in length and shows normal echogenicity. No hydronephrosis, shadowing calculi or solid mass lesions. LEFT KIDNEY: The left kidney measures 10.7 cm in length and shows normal echogenicity. Anechoic mostly exophytic lesion projecting from the lower pole measures 1.6 x 1.5 x 1.7 cm, previously 1.7 x 1.4 x 1.7 cm. No hydronephrosis or shadowing calculus. BLADDER: Distended. The prostate is enlarged measuring 5.2 x 3.5 x 5.5 cm, estimated volume 52 cc IMPRESSION: Stable exophytic left renal cystic lesion, measuring 1.7 cm in greatest dimension. Prostatomegaly with distended urinary bladder. Signed by: Dr. Burt De La Paz M.D. on 09/04/2018 3:46 PM
== END ==
LOC: US 12:00
PROVIDERS: ATTEND Internal Medicine Nephrology
DX: Q61.9 Cystic kidney disease, unspecified (principal)
CPT/HCPCS: 76770

== ENCOUNTER 2019-04-10 10:58 | Inpatient (IN) | payer MEDICARE, OTHER ==
[~2019-04-10] VITALS: Ht 160 cm; Wt 73.0 kg
--- OUTSIDE RECORDS SUMMARY | 2019-04-10 11:01 | XMS REPORT ---
Author [facility] Address Unknown Phone Unavailable Care Team Providers Care Liner Reroll Tender Name Role Phone ANA CRISTINA BROTHERS Unavailable Unavailable Linnea ALARCON Unavailable Unavailable Problems This patient has no known problems. Allergies, Adverse Reactions, Alerts This patient has no known allergies or adverse reactions. Medications This patient has no known medications. Results Test Description Test Time Test Comments Text Results Atomic Results Result Comments US RENAL RETROPERITONEAL COMP 2018-09-04 15:42:00 [place] [address] Patient Name: Francis NGUYEN MR #: [id number] : 1950 Age/Sex: 68/M Req #: [id number] Adm Physician: Ordered by: ANA CRISTINA BROTHERS MD Report #: [id number] Location: Room/Bed: Procedure: [id number] US/US RENAL RETROPERITONEAL COMP Exam Date: 09/04/18 Exam Time: 1257 REPORT STATUS: Signed EXAMINATION: Renal ultrasound. CLINICAL H ISTORY :Cystic kidney disease COMPARISON: 06/28/2017 TECHNIQUE: Grayscale and color Doppler evaluation of the kidneys and bladder was performed in transverse and longitudinal planes. DISCUSSION: RIGHT KIDNEY: The right kidney measures 10.3 cm in length and shows normal echogenicity. No hydronephrosis, shadowing calculi or solid mass lesions. LEFT KIDNEY: The left kidney measures 10.7 cm in length and shows normal echogenicity. Anechoic mostly exophytic lesion projecting from the lower pole measures 1.6 x 1.5 x 1.7 cm, previously 1.7 x 1.4 x 1.7 cm. No hydronephrosis or shadowing calculus. BLADDER: Distended. The prostate is enlarged measuring 5.2 x 3.5 x 5.5 cm, estimated volume 52 cc IMPRESSION: Stable exophytic left renal cystic lesion, measuring 1.7 cm in greatest dimension. Prostatomegaly with distended urinary bladder. Signed by: Dr. Bárbara Gillespie M.D. on 09/04/2018 3:46 PM Dictated By: VICTORIANO GILLESPIE MD 45 Transcribed By: MICAH on 09/04/181545 COPY TO: ANA CRISTINA BROTHERS MD CHEST 2 VIEWS [place] [address] Patient Name: Francis NGUYEN MR #: [id number] : 1950 Age/Sex: 67/M Req #: [id number] Adm Physician: UMESH ALARCON MD Ordered by: ALIDA SEAY MD Report #: [id number] Location: [facility] Room/Bed: [facility] Procedure: [id number] DX/CHEST 2 VIEWS Exam Date: 07/01/17 Exam Time: 2009 REPORT STATUS: Signed CHEST 2 VIEWS, Technique: CHEST 2 VIEWS Comparison: None Clinical history: Abnormal lung exam, shortness of breath DISCUSSION: Heart/mediastinum: Stable mildly enlarged. Lungs/pleural spaces: Low lung volumes result in bibasilar vascular crowding/atelectasis. No effusion or pneumothorax. IMPRESSION: Low lung volumes. Signed by: Dr Brian Smart MD on 07/01/2017 9:22 PM Dictated By: BRIAN SMART MD 21 Transcribed By: MICAH on 07/01/172121 COPY TO: ALIDA SEAY MD US RENAL RETROPERITONEAL COMP [place] [address] Patient Name: Francis NGUYEN MR #: [id number] : 1950 Age/Sex: 67/M [address] Req #: [id number] Adm Physician: UMESH ALARCON MD Ordered by: SARI RANDHAWA MD Report #: [id number] Location: [facility]/SURG Room/Bed: [facility] Procedure: [id number] US/US RENAL RETROPERITONEAL COMP Exam Date: 06/28/17 Exam Time: 1628 REPORT STATUS: Signed PROCEDURE: US RETROPERITONEAL ( KIDNEY ). COMPARISON: [facility], CT, CT ABDOMEN/PELVIS WO, 02/27/2016, 19:18. INDICATIONS: MORENA ON CKD TECHNIQUE: Damon-scale and color sonographic images of the bilateral kidneys and bladder where obtained in transverse and longitudinal planes. FINDINGS: RIGHT KIDNEY: 10.8 cm, cortex 1.6 cm Cysts: None Solid masses: None Stones: None Hydronephrosis: None Echogenicity: Increased LEFT KIDNEY: 10.9 cm, cortex 1.9 cm Cysts: 1.7 x 1.4 x 1.7 cm hypoechoic, mostly exophytic cystic lesion in the mid lateral aspect (previously measured approximately 1.2 x 1.[address] Solid masses: None Stones: None Hydronephrosis: None Echogenicity: Increased Bladder: Bladder is decompressed, with a Moss catheter in place. Circumferential bladder wall thickening. The Prostate: Not visualized CONCLUSION: 1. Bilateral increased renal cortical echogenicity, consistent with medical renal disease. No hydronephrosis or obstruction. 2. 1.7 cm mostly exophytic cystic lesion in the mid lateral left kidney, which has probably increased in size, although direct comparison is limited given the difference in modalities. This lesion measured simple fluid on prior CT. 3. Circumferential bladder wall thickening, which is greater than expected for decompressed bladder. C orrelate for cystitis. Santiago Issa M.D. Dictated by: Santiago Issa M.D. on 06/28/2017 at 18:54 Electronically approved by: Santiago Issa M.D. on 06/28/2017 at 18:54 Dictated By: SANTIAGO ISSA MD 53 Transcribed By: DANA on 06/28/171853 COPY TO: SARI RANDHAWA MD MRI FOOT LEFT WO [place] [address] Patient Name: Francis NGUYEN MR #: [id number] : 1950 Age/Sex: 67/M Req #: [id number] Adm Physician: UMESH ALARCON MD Ordered by: UMESH ALARCON MD Report #: [id number] Location: MED/SURG2 Room/Bed: [facility] Procedure: [id number] MRI/MRI FOOT LEFT WO Exam Date: 01/23/18 Exam Time: 1245 REPORT STATUS: Signed TECHNIQUE: Magnetic resonance imaging of the left foot was performed WITHOUT injected contrast. HISTORY: Foot pain and cellulitis COMPARISON: None available. DISCUSSION: Soft tissue swelling of the forefoot. No discrete ulceration, sinus tract, or abscess. Bone marrow signal is normal. No edema or T1 replacement. Hammertoe deformities. Atrophy of the foot musculature. No intermetatarsal space bursitis or neuroma. IMPRESSION: No osteomyelitis. Forefoot soft tissue edema/cellulitis Signed by: Dr. Yuridia Thompson M.D. on 06/27/2017 2:13 PM Dictated By: YURIDIA THOMPSON MD 1413 Transcribed By: MICAH on 06/27/17 1413 COPY TO: UMESH ALARCON MD CHEST SINGLE (PORTABLE) [place] [address] Patient Name: Francis NGUYEN MR #: [id number] : 1950 Age/Sex: 67/M [address] Req #: [id number] Adm Physician: Ordered by: ANGELICA BREWER REACTOR FUELING SUPERVISOR Report #: [id number] Location: ER Room/Bed: Procedure: [id number] DX/CHEST SINGLE (PORTABLE) Exam Date: 06/26/17 Exam Time: 1420 REPORT STATUS: Signed PROCEDURE: A single AP view of the chest. COMPARISON: 02/27/16 INDICATIONS: DIABETIC, LEFT 4TH DIGIT ON FOOT BLACK 10 DAYS FINDINGS: Lines/tubes: None. Lungs: Limited by low lung volumes. Central peribronchovascular thickening/cuffing. Pleura: There is no pleural effusion or pneumothorax. Heart and mediastinum: The cardiomediastinal silhouette is enlarged on this AP view. Bones: No acute bony abnormality. IMPRESSION: Limited by low lung volumes. Central peribronchovascular thickening/cuffing. Underlying infiltrate cannot be excluded. Dictated by: Alejandro Thompson M.D. on 06/26/2017 at 15:07 Electronically approved by: Alejandro Thompson M.D. on 06/26/2017 at 15:07 Dictated By: ALEJANDRO THOMPSON MD 1507 Transcribed By: DANA on 06/26/17 1507 COPY TO: ANGELICA BREWER REACTOR FUELING SUPERVISOR FOOT LEFT COMPLETE [place] [address] Patient Name: Francis NGUYEN MR #: [id number] : 1950 Age/Sex: 67/M Req #: [id number] Adm Physician: Ordered by: ANGELICA BREWER REACTOR FUELING SUPERVISOR Report #: [id number] Location: ER Room/Bed: Procedure: [id number] DX/FOOT LEFT COMPLETE Exam Date: 06/26/17 Exam Time: 1420 REPORT STATUS: Signed PROCEDURE: X-RAY LEFT FOOT, COMPLETE COMPARISON: None. INDICATIONS: DIABETIC, 4TH DIGIT ON LEFT TOE BLACK 10 DAYS FINDINGS: There are no fractures or dislocations. Focal area of decreased mineralization in the middle phalanx of the fourth toe, may represent early erosive changes. Vascular calcifications. Mild soft tissue swelling of the midfoot. CONCLUSION: Focal area of decreased mineralization in the middle phalanx of the fourth toe, may represent early erosive changes. Otherwise unremarkable exam. Dictated by: Alejandro Thompson M.D. on 06/26/2017 at 15:13 Electronically approved by: Alejandro Thompson M.D. on 06/26/2017 at 15:13 Dictated By: ALEJANDRO THOMPSON MD 1519 Transcribed By: DANA on 06/26/17 1515 COPY TO: ANGELICA BREWER NP
--- NOTE | 2019-04-10 11:45 | NUR ---
scanned bladder and pt had >497 of urine scanned in bladder.
--- NOTE | 2019-04-10 12:00 | NUR ---
urine in nava has turned from yellow to bright red blood.
[2019-04-10 12:21] LABS: BILIRUBIN,URINE NEGATIVE (NEGATIVE); CLARITY,URINE CLEAR (CLEAR); COLOR,URINE YELLOW (YELLOW); KETONES,URINE NEGATIVE (NEGATIVE); LEUKOCYTE ESTERASE ,URINE LARGE (NEGATIVE); NITRITE,URINE NEGATIVE (NEGATIVE); URINE UROBILINOGEN 0.2 mg/dL (0.2 - 1)
[2019-04-10 12:24] LABS: PROTEIN,URINE DIPSTICK 2+ (NEGATIVE)
[2019-04-10 12:29] LABS: WBC,URINE (MAN) 21-50 /HPF (0-5)
[2019-04-10 12:30] LABS: BACTERIA,URINE FEW /HPF; EPITHELIAL CELLS,URINE FEW /LPF
[2019-04-10] MEDS ORDERED: CEFTRIAXONE SOD 1 GM VIAL IV ONE (12:45)
[2019-04-10] MEDS ORDERED: CEFTRIAXONE SOD 1 GM/NS 50 ML 50 ML IV ONE (13:00)
[2019-04-10 13:25] LABS: BASOPHILS # (AUTO) 0.1 (0.0-0.1); BASOPHILS % 0.5 % (0.0-1.0); EOSINOPHILS # (AUTO) 0.1 (0.0-0.4); EOSINOPHILS % 0.4 % (0.0-6.0); HEMATOCRIT 29.9 % (38.2-49.6); HEMOGLOBIN 10.3 g/dL (14.0-18.0); LYMPHOCYTES # (AUTO) 0.7 (1.0-3.2); MEAN CORPUSCULAR HEMOGLOBIN 31.6 pg (28-32); MEAN CORPUSCULAR HGB CONC 34.4 g/dL (31-35); MEAN CORPUSCULAR VOLUME 91.7 fL (81-99); MONOCYTES % 9.1 % (4.4-11.3); NEUTROPHILS # (AUTO) 9.6 (2.1-6.9); NEUTROPHILS % 83.6 % (38.7-80.0); PLATELET COUNT 179 x10e3/uL (140-360); RED BLOOD COUNT 3.26 x10e6/uL (4.3-5.7); RED CELL DISTRIBUTION WIDTH 12.5 % (11.7-14.4)
[2019-04-10 13:41] LABS: ALBUMIN 3.3 g/dL (3.5-5.0); ALBUMIN/GLOBULIN RATIO 0.8 (0.8-2.0); ANION GAP 14.3 mmol/L (8-16); CALCIUM 9.1 mg/dL (8.4-10.2); CREATININE, SERUM 3.31 mg/dL (0.72-1.25); POTASSIUM 4.3 mmol/L (3.5-5.1)
[2019-04-10] MEDS ORDERED: ONDANSETRON HCL INJ 2MG/ML 2ML 2 MG/ML VIAL IV PRN (15:00)
[2019-04-10] MEDS ORDERED: CEFTRIAXONE SOD 1 GM VIAL IV SCH (15:00)
--- NOTE | 2019-04-10 15:07 | NUR ---
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 PMH: DFU s/p right BKA, DM2, CKD stage 4, nocturia, BPH, AOCD pSHx: right BKA Allergies; see emr Fh/SH; ; no cigs Meds; see MAR ROS: no f/c/s/N/V/D/SCRUGGS/vision changes/cp/sob/skin rash V/s; revd PE tired appearing anicteric ns1s2 mod bs soft nt nd SALINAS WITH BLOODY MATERIAL no e/t RIGHT LEG PROSTHESIS skin dry flat affect a&ox3; cardenas labs/meds; revd A/P: Hematuria Urinary retention BPH UTI CKD4 due to DM2 PLAN HOLD plavix; hold aceI and ARB IVF; nephr consult; salinas placed; urology consult Chelsi Coats MD, PhD.
[2019-04-10] MEDS ORDERED: DEXTROSE 50% SYRINGE 50 ML IV PRN (15:15)
[2019-04-10 15:27] LABS: CHOL/HDL RATIO 4.5 (3.9-4.7)
[2019-04-10 16:41] VITALS: BP 151/73
[2019-04-10 16:50] VITALS: BP 151/73
[2019-04-10] MEDS: SODIUM CHLORIDE 0.9% 1000ML 1,000 ML IV SCH (18:00)
[2019-04-10] MEDS: INSULIN REGULAR, HUMAN 100 UNIT/1 ML 3ML VIAL SQ SCH ×2 (18:06→21:33)
[2019-04-10] MEDS: CEFTRIAXONE SOD 1 GM/NS 50 ML 50 ML IV SCH (18:22)
[2019-04-10] MEDS: FAMOTIDINE 20 MG TAB PO SCH (18:22)
[2019-04-10 20:21] VITALS: BP 148/77
[2019-04-10] MEDS: SIMVASTATIN 20 MG TAB PO SCH (21:33)
[2019-04-10] MEDS ORDERED: ACETAMINOPHEN 325 MG TAB PO PRN (23:45)
--- NOTE | 2019-04-10 23:45 | NUR ---
CALLED AND SPOKE WITH DR FOOTE NOTIFIED PT'S ELEVATED TEMP.NEW ORDERS RECEIVED AND ENTERED.
[2019-04-11] VITALS (7 sets, daily range): BP systolic 119–170; BP diastolic 61–85
--- NOTE | 2019-04-11 03:52 | NUR ---
PT NOTED DIAPHORETIC AND LETHARGIC CHECKED FINGERSTICK BLOOD SUGAR AND NOTED 42.PRN D50 GIVEN PER AUG.RECHECKED BLOOD SUGAR AND NOTED 248.PT STATED OF FEELING BETTER.BED BATH GIVEN WITH ASSISTANCE OF PCT.BED IN LOWEST/LOCKED POSITION.BED ALARM ACTIVATED.CALL LIGHT WITHIN EASY REACH. Addendum: 04/11/19 at 0608 by Calista Woodward RN DR FOOTE NOTIFIED.NO NEW ORDERS RECEIVED.
[2019-04-11] MEDS: SODIUM CHLORIDE 0.9% 1000ML 1,000 ML IV SCH ×2 (04:10→12:20)
[2019-04-11 06:36] LABS: BASOPHILS % 0.6 % (0.0-1.0); EOSINOPHILS # (AUTO) 0.1 (0.0-0.4); EOSINOPHILS % 1.1 % (0.0-6.0); HEMATOCRIT 29.5 % (38.2-49.6); HEMOGLOBIN 9.7 g/dL (14.0-18.0); LYMPHOCYTES # (AUTO) 0.8 (1.0-3.2); LYMPHOCYTES % 12.5 % (18.0-39.1); MEAN CORPUSCULAR HEMOGLOBIN 31.5 pg (28-32); MEAN CORPUSCULAR HGB CONC 32.9 g/dL (31-35); MEAN CORPUSCULAR VOLUME 95.8 fL (81-99); MONOCYTES # (AUTO) 0.8 (0.2-0.8); NEUTROPHILS # (AUTO) 4.5 (2.1-6.9); NEUTROPHILS % 72.2 % (38.7-80.0); PLATELET COUNT 157 x10e3/uL (140-360); RED BLOOD COUNT 3.08 x10e6/uL (4.3-5.7); RED CELL DISTRIBUTION WIDTH 12.6 % (11.7-14.4)
--- NOTE | 2019-04-11 06:38 | NUR ---
DR FOOTE IN UNIT,NOTIFIED PT'S BP OF 170/81 WITH PULSE 71.NEW ORDER RECEIVED AND ENTERED.
[2019-04-11 06:56] LABS: ALBUMIN 2.8 g/dL (3.5-5.0); ALBUMIN/GLOBULIN RATIO 0.8 (0.8-2.0); ANION GAP 14.2 mmol/L (8-16); CALCIUM 8.5 mg/dL (8.4-10.2); CREATININE, SERUM 3.27 mg/dL (0.72-1.25); POTASSIUM 4.2 mmol/L (3.5-5.1)
--- NOTE | 2019-04-11 07:00 | NUR ---
RECEIVED PATIENT AWAKE RESTING AT THIS TIME. NO SIGNS OF DISTRESS. BED LOW, WHEELS LOCKED, SIDE RAILS X2. CALL LIGHT IN REACH WILL CONTINUE TO MONITOR PATIENT.
--- NOTE | 2019-04-11 07:10 | NUR ---
Im- progress note O/N no events ROS: no f/c/s/N/V/D/SCRUGGS/vision changes/cp/sob/skin rash V/s; revd PE tired appearing anicteric ns1s2 mod bs soft nt nd SALINAS WITH BLOODY MATERIAL no e/t RIGHT LEG PROSTHESIS skin dry flat affect a&ox3; cardenas labs/meds; revd A/P: Hematuria Urinary retention BPH UTI CKD4 due to DM2 PLAN HOLD plavix; hold aceI and ARB IVF; nephr consult; salinas placed; urology consult Pepcid 04/11 hba1c/LDL 6.1/100. start lantus; f/u urology recs. Tulio Coats MD, PhD.
[2019-04-11] MEDS: INSULIN REGULAR, HUMAN 100 UNIT/1 ML 3ML VIAL SQ SCH ×4 (07:30→20:56)
[2019-04-11] MEDS: TAMSULOSIN HCL 0.4 MG CAP PO SCH (07:58)
[2019-04-11] MEDS: FINASTERIDE 5 MG TAB PO SCH (07:58)
[2019-04-11] MEDS: GABAPENTIN 400 MG CAP PO SCH (07:58)
[2019-04-11] MEDS: METOPROLOL SUCCINATE 50 MG TAB XL PO SCH (07:58)
[2019-04-11] MEDS: FAMOTIDINE 20 MG TAB PO SCH ×2 (07:58→17:33)
[2019-04-11] MEDS: NIFEDIPINE CR 30 MG TAB PO SCH ×2 (08:09→20:59)
[2019-04-11] MEDS ORDERED: METOPROLOL SUCCINATE 25 MG TAB XL PO SCH (09:00)
[2019-04-11] MEDS: INSULIN GLARGINE 100 UNITS/ML VIAL SQ SCH (09:00)
--- NOTE | 2019-04-11 10:00 | NUR ---
PATIENT A/O X3, EVEN RESPIRATIONS ON RA. LUNG SOUNDS CLEAR TO AUSCULTATION. RIGHT AC 18 GAUGE IV WITH NS @ 75. IV INTACT AND PATENT. SALINAS IN PLACE, HEMATURIA NOTED. PATIENT AFEBRILE. NO PAIN AT THIS TIME. CALL LIGHT IN REACH WILL CONTINUE TO MONITOR PATIENT.
[2019-04-11] MEDS: CEFTRIAXONE SOD 1 GM/NS 50 ML 50 ML IV SCH (17:47)
--- NOTE | 2019-04-11 20:48 | Consultation ---
DATE OF CONSULTATION: 04/11/2019 REASON FOR CONSULTATION: To evaluate and assist in treating the patient with a complicated urinary tract infection. Information is gathered from the current medical record. I interviewed the patient at the bedside. HISTORY OF PRESENT ILLNESS: He is a 69-year-old male with diabetes mellitus, hypertension, chronic kidney disease, benign prostatic hypertrophy, who has had a right below-knee amputation in the past. He reports that he recently developed dysuria and frequency for which he came to the hospital for evaluation. At presentation, initial temperature was 99 degrees Fahrenheit. Subsequently, he developed a temperature to 100.9 and then to 101.1 degrees Fahrenheit. He had a CBC done that showed a white count of 11.4 thousand. His serum creatinine was found to be 3.3. He had a urinalysis that showed a clear urine with negative nitrite, positive esterase, 6-10 rbc's, 21-50 wbc's with a few bacteria. Urine and blood cultures have been collected. He has been started on treatment with ceftriaxone. PAST MEDICAL HISTORY: As reported above. There is no history of liver disease, myocardial infarction or CVA. SOCIAL HISTORY: He never smoked. He drinks occasionally. He denies other forms of recreational drug use. FAMILY HISTORY: Positive for diabetes and hypertension. ALLERGIES: HE HAS NO KNOWN MEDICATION ALLERGIES REPORTED EARLIER. MEDICATIONS: He is on treatment with ceftriaxone. The rest of his medications are per the medication administration report. REVIEW OF SYSTEMS: The patient is alert. His sensorium is clear. He has no headache. No neck stiffness. No sore throat. No visual or auditory complaints. No chest or abdominal pain. He had frequency and dysuria. He says he did not have hematuria prior to presentation. PHYSICAL EXAMINATION: GENERAL: He is an adult male. He is alert, responsive, coherent. He appears nontoxic and is in no acute distress. VITAL SIGNS: Maximum temperature recorded since admission is 101.1 degrees Fahrenheit. His most recent temperature is 97 degrees. He is hemodynamically stable. HEENT: He has no pallor. There is no icterus. No oropharyngeal lesions. NECK: Supple. CHEST: Symmetric. LUNGS: Clear. HEART: Sounds are regular without a significant murmur. ABDOMEN: Full, soft, nontender with normal bowel sounds. No costovertebral angle tenderness. EXTREMITIES: No acute erythema of his extremities. He is a right below-knee amputee. LABORATORY DATA: His white count is 11.4 at presentation, 6.1 currently, hemoglobin 9.7 and platelet count 157. Differentials on his white count appear unremarkable. His serum creatinine 3.3 at presentation, 3.2 currently. His liver function tests are unremarkable. Urine and blood culture reports are pending. Renal ultrasound shows an exophytic left renal cystic lesion. There is prostatomegaly with distended urinary bladder. IMPRESSION: This 69-year-old male is a diabetic with a history of benign prostatic hypertrophy. He is admitted to hospital with signs and symptoms consistent with sepsis present on admission due to urinary tract infection with an obstructive uropathy. Urine and blood culture reports are pending. The patient is in chronic kidney failure. I suggest we continue ceftriaxone and follow up on his cultures. He needs Urology evaluation and followup. He needs Nephrology evaluation and followup. I have discussed the findings and plans of treatment with the patient at the bedside. I will discuss the patient with Dr. Coats whom I thank for the consult and opportunity to participate in the patient's care. MD MARIO ALBERTO Strong/JIM /[id number]
[2019-04-11] MEDS: SIMVASTATIN 20 MG TAB PO SCH (20:59)
[2019-04-12] VITALS (8 sets, daily range): BP systolic 126–165; BP diastolic 68–80
--- NOTE | 2019-04-12 01:10 | Consultation ---
DATE OF CONSULTATION: 04/11/2019 SERVICE: Urology. REASON FOR THE VISIT: Urinary retention, hematuria. HISTORY OF PRESENT ILLNESS: This is a 69-year-old patient, who was admitted to the hospital for difficulty voiding, frequency of urination with a just few mL every time. He did have low abdominal discomfort. In the past, he was treated by Dr. Walker for nephrolithiasis. He was found in the past to have a renal cyst on the left side and nephrolithiasis. PAST MEDICAL HISTORY: Significant for, 1. Right BKA. 2. Diabetes mellitus. 3. Hypertension. 4. Renal cyst. 5. BPH. 6. Nephrolithiasis. ALLERGIES: ALLERGY TO MEDICATIONS NOT KNOWN. MEDICATIONS: See MAR. FAMILY HISTORY: Noncontributory. REVIEW OF SYSTEMS: SYSTEMIC: No fever, no chills. No change in weight. CHEST: No shortness of breath. HEART: No heart pain. All other 12 systems negative except what was mentioned about urination period. FAMILY HISTORY: Negative. SOCIAL HISTORY: Never smoked. No use of alcohol or illicit drugs. PHYSICAL EXAMINATION: GENERAL: The patient is alert and oriented x3. VITAL SIGNS: Blood pressure 150/86, pulse 88, and temperature 98.4. HEAD: Symmetric. Eyes: No movement. NECK: No JVD. CHEST: Clear. HEART: Regular. ABDOMEN: Soft. EXTERNAL GENITALIA: Unremarkable. Moss catheter in place. RECTAL: definitive masses. EXTREMITIES: Lower extremities move all. LABORATORY DATA: Reviewed. IMPRESSION: 1. Urinary retention of 450 mL. 2. Microhematuria. 3. Possible urinary tract infection. 4. Right below knee amputation. 5. Diabetes mellitus. 6. Hypertension. 7. Renal cyst on the left side. 8. History of nephrolithiasis. PLAN: Keep the Moss catheter. Continue tamsulosin 0.4 mg daily. We will follow with you. Rafi Damon MD [facility]/MODL /[id number]
[2019-04-12 05:38] LABS: BASOPHILS % 0.6 % (0.0-1.0); EOSINOPHILS # (AUTO) 0.4 (0.0-0.4); EOSINOPHILS % 6.8 % (0.0-6.0); HEMATOCRIT 30.6 % (38.2-49.6); LYMPHOCYTES # (AUTO) 1.5 (1.0-3.2); LYMPHOCYTES % 23.6 % (18.0-39.1); MEAN CORPUSCULAR HEMOGLOBIN 30.9 pg (28-32); MEAN CORPUSCULAR HGB CONC 32.7 g/dL (31-35); MEAN CORPUSCULAR VOLUME 94.4 fL (81-99); MONOCYTES % 16.5 % (4.4-11.3); NEUTROPHILS # (AUTO) 3.2 (2.1-6.9); PLATELET COUNT 195 x10e3/uL (140-360); RED BLOOD COUNT 3.24 x10e6/uL (4.3-5.7); RED CELL DISTRIBUTION WIDTH 12.2 % (11.7-14.4)
[2019-04-12 05:57] LABS: CALCIUM 8.7 mg/dL (8.4-10.2); CREATININE, SERUM 2.96 mg/dL (0.72-1.25)
--- NOTE | 2019-04-12 07:17 | NUR ---
REPORT GIVEN TO ONCOMING NURSE.WALKING ROUNDS MADE.PT RESTING IN BED WITH NO S/S OF DISTRESS.
[2019-04-12] MEDS: SODIUM CHLORIDE 0.9% 1000ML 1,000 ML IV SCH ×3 (07:20→20:44)
[2019-04-12] MEDS: FAMOTIDINE 20 MG TAB PO SCH ×2 (08:30→17:13)
[2019-04-12] MEDS: INSULIN REGULAR, HUMAN 100 UNIT/1 ML 3ML VIAL SQ SCH ×4 (08:30→20:33)
[2019-04-12] MEDS: INSULIN GLARGINE 100 UNITS/ML VIAL SQ SCH (09:55)
[2019-04-12] MEDS: TAMSULOSIN HCL 0.4 MG CAP PO SCH (09:58)
[2019-04-12] MEDS: FINASTERIDE 5 MG TAB PO SCH (09:58)
[2019-04-12] MEDS: NIFEDIPINE CR 30 MG TAB PO SCH ×2 (09:58→20:44)
[2019-04-12] MEDS: GABAPENTIN 400 MG CAP PO SCH (09:58)
[2019-04-12] MEDS: METOPROLOL SUCCINATE 50 MG TAB XL PO SCH (09:58)
--- NOTE | 2019-04-12 10:33 | NUR ---
Im- progress note O/N no events ROS: no f/c/s/N/V/D/SCRUGGS/vision changes/cp/sob/skin rash V/s; revd PE tired appearing anicteric ns1s2 mod bs soft nt nd SALINAS WITH BLOODY MATERIAL no e/t RIGHT LEG PROSTHESIS skin dry flat affect a&ox3; cardenas labs/meds; revd A/P: Hematuria Urinary retention BPH UTI CKD4 due to DM2 PLAN HOLD plavix; hold aceI and ARB IVF; nephr consult; salinas placed; urology consult Pepcid 04/11 hba1c/LDL 6.1/100. start lantus; f/u urology recs. Tulio Foote MD, PhD. Tulio Foote Apr 11, 2019/13:25 Provider - Electronically Signed Date/Time User: Isabel Castillo RN Date: 04/11/19 07:00 Type: Nurse Notes RECEIVED PATIENT AWAKE RESTING AT THIS TIME. NO SIGNS OF DISTRESS. BED LOW, WHEELS LOCKED, SIDE RAILS X2. CALL LIGHT IN REACH WILL CONTINUE TO MONITOR PATIENT. User: Calista Woodward RN Date: 04/11/19 06:38 Type: Nurse Notes DR FOOTE IN UNIT,NOTIFIED PT'S BP OF 170/81 WITH PULSE 71.NEW ORDER RECEIVED AND ENTERED. User: Calista Woodward RN Date: 04/11/19 03:52 Type: Nurse Notes PT NOTED DIAPHORETIC AND LETHARGIC CHECKED FINGERSTICK BLOOD SUGAR AND NOTED 42.PRN D50 GIVEN PER MAR.RECHECKED BLOOD SUGAR AND NOTED 248.PT STATED OF FEELING BETTER.BED BATH GIVEN WITH ASSISTANCE OF PCT.BED IN LOWEST/LOCKED POSITION.BED ALARM ACTIVATED.CALL LIGHT WITHIN EASY REACH. Addendum: 04/11/19 at 0608 by Calista Woodward RN DR FOOTE NOTIFIED.NO NEW ORDERS RECEIVED. User: Calista Woodward RN Date: 04/10/19 23:45 Type: Nurse Notes CALLED AND SPOKE WITH DR DARY ROSALES PT'S ELEVATED TEMP.NEW ORDERS RECEIVED AND ENTERED. 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 PMH: DFU s/p right BKA, DM2, CKD stage 4, nocturia, BPH, AOCD pSHx: right BKA Allergies; see emr Fh/SH; ; no cigs Meds; see MAR ROS: no f/c/s/N/V/D/SCRUGGS/vision changes/cp/sob/skin rash V/s; revd PE tired appearing anicteric ns1s2 mod bs soft nt nd SALINAS WITH BLOODY MATERIAL no e/t RIGHT LEG PROSTHESIS skin dry flat affect a&ox3; cardenas labs/meds; revd A/P: Hematuria Urinary retention BPH UTI CKD4 due to DM2 PLAN HOLD plavix; hold aceI and ARB IVF; nephr consult; salinas placed; urology consult Pepcid 11-8 GNR UTI; f/u; continue salinas; d/c planning as leukocytosis has resolved; Tulio Foote MD, PhD.
[2019-04-12] MEDS ORDERED: ONDANSETRON HCL 4 MG ORAL DISINTEGRATING TAB PO PRN (12:15)
--- NOTE | 2019-04-12 17:23 | Progress Note ---
DATE: 04/12/2019 SUBJECTIVE: The patient is alert and responsive. He is in no acute distress. He is not coughing currently. No dyspnea at rest. No vomiting. No diarrhea. No other systemic complaints reported. OBJECTIVE: VITAL SIGNS: In the past 24 hours, he had temperatures up to 101.1 degrees Fahrenheit. His most recent temperature is 96.8 degrees Fahrenheit. GENERAL: He is hemodynamically stable. HEENT: He has no pallor. There is no icterus. No oropharyngeal lesions. NECK: Supple. CHEST: Symmetric. LUNGS: Clear. HEART: Sounds are regular without a significant murmur. ABDOMEN: Soft, nontender. Bowel sounds are normal. EXTREMITIES: No acute erythema of his extremities. LABORATORY DATA: His white count is 6.1 currently. Serum creatinine 2.9. His urine culture from April 10, is grew more than 100,000 colonies of gram-negative bacilli. Blood cultures are negative. IMPRESSION: He is on treatment for sepsis due to a complicated genitourinary tract infection with gram-negative bacilli. He has prostatomegaly with obstructive uropathy. He is stable from Infectious Disease point. I suggest continue his antibiotics. Follow up on the cultures. Continue to monitor clinical response to treatment. MD MARIO ALBERTO Strong/PRIYAL /[id number]
[2019-04-12] MEDS: CEFTRIAXONE SOD 1 GM/NS 50 ML 50 ML IV SCH (18:09)
[2019-04-12] MEDS: SIMVASTATIN 20 MG TAB PO SCH (20:44)
[2019-04-13 04:45] VITALS: BP 135/68
[2019-04-13] MEDS: INSULIN REGULAR, HUMAN 100 UNIT/1 ML 3ML VIAL SQ SCH ×2 (07:30→12:15)
[2019-04-13] MEDS: FINASTERIDE 5 MG TAB PO SCH (08:30)
[2019-04-13] MEDS: GABAPENTIN 400 MG CAP PO SCH (08:30)
[2019-04-13] MEDS: FAMOTIDINE 20 MG TAB PO SCH (08:30)
[2019-04-13] MEDS: TAMSULOSIN HCL 0.4 MG CAP PO SCH (08:30)
[2019-04-13] MEDS: METOPROLOL SUCCINATE 50 MG TAB XL PO SCH (08:30)
[2019-04-13] MEDS: NIFEDIPINE CR 30 MG TAB PO SCH (08:30)
[2019-04-13 08:45] VITALS: BP 149/76
[2019-04-13] MEDS: INSULIN GLARGINE 100 UNITS/ML VIAL SQ SCH (09:00)
[2019-04-13] MEDS: SODIUM CHLORIDE 0.9% 1000ML 1,000 ML IV SCH (09:30)
[2019-04-13 09:43] VITALS: BP 149/76
--- NOTE | 2019-04-13 10:10 | NUR ---
D/C summary Principal Dx: E.coli UTi Hematuria s/p nava Urinary retention BPH UTI CKD4 due to DM2 PLAN HOLD plavix; hold aceI and ARB IVF; nephr consult; nava placed; urology consult Pepcid 04/11 hba1c/LDL 6.1/100. start lantus; f/u urology recs 04/12 cont care; 04/13 . d.c home d/c home on keflex stable f/u and PCP 1 week d/c>35mins Tulio Coats MD, PhD.
[2019-04-13] MEDS ORDERED: KEFLEX500 MG PO (10:13)
--- NOTE | 2019-04-13 12:27 | NUR ---
MD FREIRE INTO SEE PT, DISCUSSED DISCHARGE INSTRUCTIONS, PT VERBALIZED UNDERSTANDING
--- NOTE | 2019-04-13 12:58 | Consultation ---
DATE OF CONSULTATION: 04/13/2019 Nephrology Consultation REASON FOR CONSULTATION: Upbni-ij-fnnnqwr kidney disease. HISTORY OF PRESENT ILLNESS: The patient is a 69-year-old male with history of diabetes mellitus, benign prostatic hypertrophy, and stage IV CKD, followed by Dr. Hart. He was admitted on 04/10/2019 with urinary retention. This was held by placement of a Moss catheter, which he still has. Urology has seen him and the plan is to leave the catheter in for a few more days while he is on Flomax. His admission creatinine was 3.31, which is down to 2.96 today. The patient denies any uremic symptoms such as nausea, vomiting, shortness of breath, or diarrhea. In fact, he is planned to be discharged home today with a Moss catheter. PAST MEDICAL HISTORY: As above. CURRENT MEDICATIONS: Reviewed in MAR. For blood pressure, he is on nifedipine 30 mg q.12 hours and metoprolol 50 mg daily. Also on Flomax and Proscar for BPH. He does use insulin for his diabetes mellitus and Zocor for dyslipidemia. FAMILY HISTORY: Noncontributory. SOCIAL HISTORY: Does not smoke. REVIEW OF SYSTEMS: Negative, except as noted above in HPI. PHYSICAL EXAMINATION: VITAL SIGNS: Stable. Blood pressure 149/76, heart rate 73 per minute, he is afebrile, respirations 20 per minute. SKIN: Normal turgor. No active lesions. HEENT: Normocephalic, atraumatic head. Oral mucosa normal. No jaundice. NECK: Supple without jugular venous distention. CHEST: Clear to auscultation bilaterally. CARDIOVASCULAR: Shows normal S1, S2 without a rub or gallop. ABDOMEN: Soft, obese, nontender. Moss catheter is in place. EXTREMITIES: Without pitting edema. Does have a right BKA. NEUROLOGIC: Alert and oriented x3. LABORATORY DATA: Serum chemistries from yesterday show a BUN of 34, creatinine 2.96, estimated GFR 21, total calcium 8.7. Electrolytes essentially normal. Hemoglobin 10, white count 6.1, normal platelets. Urinalysis on admission showed 2+ protein, 6-10 red cells, 21-50 white cells. Urine culture grew out E coli, for which he has been treated with antibiotics. IMPRESSION: 1. Acute kidney injury, secondary to urinary retention from benign prostatic hyperplasia. Renal function is improving following decompression of the bladder with Moss catheter. 2. Stage 4 chronic kidney disease, possibly from diabetic nephropathy. 3. Hypertension, controlled on current medications. 4. Urinary tract infection with E coli, clinically responding to IV ceftriaxone. 5. Anemia secondary to chronic kidney disease, current hemoglobin stable. RECOMMENDATIONS: Agree with the management so far. The patient is being discharged today and will need followup in the Nephrology Clinic in [place] for his CKD stage 4. May continue same blood pressure medication. Per Urology, Moss catheter will continue to be used until the Flomax has had time to kick in. Avoid all known nephrotoxins, specially NSAIDs as outpatient. Thank you very much for this consultation. MD EASTON RuizH/PRIYAL /[id number]
[2019-04-13] MEDS ORDERED: CEFUROXIME250 MG PO (13:34)
[2019-04-13] MEDS ORDERED: FLOMAX0.4 MG PO (13:35)
[2019-04-13 14:11] VITALS: BP 169/86
--- NOTE | 2019-04-13 14:48 | Progress Note ---
DATE: 04/13/2019 SUBJECTIVE: The patient is alert and responsive. He is in no distress. He has no respiratory or gastrointestinal complaints. His Moss catheter remains in place. The drainage is clean. No adverse medication reaction reported. In the past 24 hours, he had temperatures up to 98.6 degrees Fahrenheit. His most recent temperature is 96.9. He is hemodynamically stable. OBJECTIVE: HEENT: He has no pallor. There is no icterus. No oropharyngeal lesions. NECK: Supple. CHEST: Symmetric. LUNGS: Clear. HEART: Sounds are regular. There is no new murmur. ABDOMEN: Soft, nontender. Bowel sounds are normal. EXTREMITIES: There is no acute erythema of the extremities. LABORATORY DATA: His white count is 6.1 from April 12. Creatinine 2.9. His urine culture is growing E coli, resistant only to Bactrim, ciprofloxacin and intermediate susceptibility to levofloxacin. It is sensitive to cephalosporins and ampicillin. IMPRESSION: He is on treatment for sepsis due to a complicated urinary tract infection with obstructive uropathy. Urine culture is growing E coli. Sensitivities are as reported above. The patient is afebrile. His leukocytosis has resolved. He can be discharged on oral antibiotics to continue follow up on an outpatient basis. He should complete a minimum of 7 days of antibiotic treatment. MD MARIO ALBERTO Strong/JIM /[id number]
--- NOTE | 2019-04-13 16:06 | NUR ---
DISCHARGE INSTRUCTIONS REVIEWED WITH PT, SALINAS LEG BAG TO OVERNIGHT BAG DEMONSTRATED FOR PT, PT VERBALIZED UNDERSTANDING HOW TO CHANGE, PT WHEELED OFF UNIT FOR DISCHARGE, NO CHANGE IN CONDITION
== END 2019-04-13 16:04 | disposition home or self-care (01) | DRG 872 ==
LOC: ER 10:58 → ERHOLD 14:59 → MED/SURG 16:23
PROVIDERS: ADMIT Internal Medicine; ATTEND Internal Medicine
DX: A41.9 Sepsis, unspecified organism (principal); N18.4 Chronic kidney disease, stage 4 (severe); N39.0 Urinary tract infection, site not specified; N17.9 Acute kidney failure, unspecified; R31.9 Hematuria, unspecified; N40.1 Benign prostatic hyperplasia with lower urinary tract symptoms; R33.8 Other retention of urine; E11.22 Type 2 diabetes mellitus with diabetic chronic kidney disease; I12.9 Hypertensive chronic kidney disease with stage 1 through stage 4 chronic kidney disease, or unspecified chronic kidney disease; Z79.4 Long term (current) use of insulin; Z89.611 Acquired absence of right leg above knee; B96.20 Unspecified Escherichia coli [E. coli] as the cause of diseases classified elsewhere; N13.9 Obstructive and reflux uropathy, unspecified; D63.8 Anemia in other chronic diseases classified elsewhere
CPT/HCPCS: 36415; 80048; 80053; 80061; 81001; 82948; 83036; 84152; 85025; 87040; 87086; 87186; 99284; J0696; J1815; J1817; J7030; J7799